=== PATIENT | male | born 1950 | race Caucasian/White ===

== ENCOUNTER 2017-06-02 19:38 | Inpatient (IN) | payer OTHER ==
[~2017-06-02] VITALS: Ht 175.3 cm; Wt 82.0 kg
--- NOTE | 2017-06-02 20:01 | EMERGENCY ROOM VISIT NOTE ---
History Report prepared by Pepeibpiero: Yael Chaparro Under the Supervision of: Dr. Michael Sarabia D.O. First contact with patient: 19:48 Chief Complaint: BACK PAIN Stated Complaint: BACK PAIN History of Present Illness The patient is a 66 year old male who presents to the Emergency Room with complaints of constant lower back pain beginning a month ago. He notes that a month ago he was bending over to pick something up when a sharp pain in his back started. He states that his pain is no longer sharp but it is now constant. The patient's pain worsens with movement. The patient had an MRI of his lower back on May 31 which was ordered by his PCP. He notes numbness and weakness in his legs beginning a week ago. The patient notes that a month ago he was walking normally but now he has to hold onto things to get around. Pt notes a cough but denies headache, change in vision, fevers, chest pain, shortness of breath, nausea, vomiting, diarrhea, pain with urination, and melena. Per [facility] ED report: The patient had an MRI spine then went to the ED at [facility]. His case discussed with between ER physician and with Dr. [facility] who recommended following up with edi specialist in week MRI Impression 05/31/17 1521: Acute central compression deformity of the L3 vertebral body with a bow tie configuration. The superior and inferior central endplates are depressed approximately 56 mm. retropulsion of the posterior L3 vertebral body with marked spinal canal stenosis and impingement of the cauda equina. No epidural abnormalities suggested. Mild edematous changes of the central endplates of L2-L3 and L3-L4. L3-L4 marked spinal canal stenosis. ilateral neural foraminal narrowing. L4-L5 marked spinal canal stenosis. Bilateral neural foraminal narrowing. Source of History: patient Onset: month ago Position: back (lower) Timing: constant Associated Symptoms: + cough, + weakness, + numbness, No fevers, No headache , No chest pain, No SOB, No nausea, No vomiting, No urinary symptoms Review of Systems See HPI for pertinent positives & negatives. A total of 10 systems reviewed and were otherwise negative. Past Medical & Surgical no active medical problems. Family History no pertinent family history stated. Social History Smoking Status: Former Smoker Marital Status: Current/Historical Medications Scheduled Allopurinol (Zyloprim), 150 MG PO DAILY Aspirin (Aspirin Ec), 81 MG PO DAILY Atorvastatin (Lipitor), 20 MG PO DAILY Baclofen (Lioresal), 10 MG PO TID/PRN Diclofenac (Voltaren), 75 MG PO BID Ferrous Sulfate (Iron), 325 MG PO DAILY Fish Oil ([place]-3), 1,400 MG PO DAILY Glipizide (Glipizide Er), 10 MG PO DAILY Hctz/Losartan (Hyzaar 25MG/100MG), 1 TAB PO DAILY Levothyroxine Sodium (Levothyroxine Sodium), 50 MCG PO DAILY Metformin Hcl (Glucophage), 1,000 MG PO BID Scheduled PRN Oxycodone/Acetaminophen 5MG/325MG (Percocet 5MG/325MG), 1 TABLET PO Q4H PRN for Pain Allergies Coded Allergies: No Known Allergies (Unverified , 06/02/17) Physical Exam Vital Signs Date Time Temp Pulse Resp B/P (MAP) Pulse Ox O2 Delivery O2 Flow Rate FiO2 06/03/17 00:16 65 16 164/84 92 Room Air 06/02/17 21:32 71 18 138/72 94 Room Air 06/02/17 19:42 36.9 83 20 137/89 94 Room Air Physical Exam GENERAL: sitting up in bed, alert, well appearing, well nourished, no distress, non-toxic EYE EXAM: normal conjunctiva OROPHARYNX: no exudate, no erythema, lips, buccal mucosa, and tongue normal and mucous membranes are moist NECK: supple, no nuchal rigidity, no adenopathy, non-tender LUNGS: Clear to auscultation. Normal chest wall mechanics HEART: no murmurs, S1 normal and S2 normal ABDOMEN: abdomen soft, non-tender, normo-active bowel sounds, no masses, no rebound or guarding. BACK: Back is symmetrical on inspection and there is no deformity, no midline tenderness, no CVA tenderness. SKIN: no rashes and no bruising UPPER EXTREMITIES: upper extremities are grossly normal. LOWER EXTREMITIES: flexion/extension of hip, knee, ankle intact, EHL 5/5 bilaterally but with slow movement. Patellar and Achilles 2/4 bilaterally. Pt is able to stand on heels and toes but ambulates with wide gait. Pt report diminishes sensation on anterior thighs. NEURO EXAM: Normal sensorium, cranial nerves II-XII grossly intact, normal speech, no gross weakness of arms. Medical Decision & Procedures ER Provider Diagnostic Interpretation: Radiology results as stated below per my review and the radiologist's interpretation: SINGLE VIEW CHEST FINDINGS: An AP, portable, upright chest radiograph is obtained. No prior studies are available for comparison at the time of dictation. The examination is degraded by portable technique and patient rotation. The heart is enlarged. The pulmonary vasculature is noncongested. Enlargement the central pulmonary arteries suggests pulmonary artery hypertension. There is diffuse interstitial thickening. There is masslike consolidation identified in the subpleural left midlung. Consolidative change is also seen at the left lung base. There is no large pleural effusion. The right lung is grossly clear. No pneumothorax is seen. The skeletal structures are osteopenic. The bony thorax is grossly intact. Degenerative changes noted throughout the thoracic spine. IMPRESSION: 1. There is masslike consolidation in the subpleural left midlung as well as consolidative change at the left lung base. Correlate clinically for evidence of pneumonia. Radiographic follow-up to resolution is recommended. If this fails to resolve then a chest CT should be considered to exclude underlying mass lesion. 2. Cardiomegaly. 3. The right lung appears clear. Electronically signed by: Jacky Solis M.D. Laboratory Results 06/02/17 20:21 Red Blood Count 3.94, Mean Corpuscular Volume 89.1, Mean Corpuscular Hemoglobin 30.2, Mean Corpuscular Hemoglobin Concent 33.9, Mean Platelet Volume 10.8, Neutrophils (%) (Auto) 75.4, Lymphocytes (%) (Auto) 11.2, Monocytes (%) (Auto) 9.5, Eosinophils (%) (Auto) 3.0, Basophils (%) (Auto) 0.3, Neutrophils # (Auto) 10.60, Lymphocytes # (Auto) 1.58, Monocytes # (Auto) 1.33, Eosinophils # (Auto) 0.42, Basophils # (Auto) 0.04 06/02/17 20:21 06/02/17 21:08 Test 06/02/17 20:21 06/02/17 21:08 White Blood Count 14.06 K/uL (4.8-10.8) Red Blood Count 3.94 M/uL (4.7-6.1) Hemoglobin 11.9 g/dL (14.0-18.0) Hematocrit 35.1 % (42-52) Mean Corpuscular Volume 89.1 fL (80-100) Mean Corpuscular Hemoglobin 30.2 pg (25-34) Mean Corpuscular Hemoglobin Concent 33.9 g/dl (32-36) Platelet Count 305 K/uL (130-400) Mean Platelet Volume 10.8 fL (7.4-10.4) Neutrophils (%) (Auto) 75.4 % Lymphocytes (%) (Auto) 11.2 % Monocytes (%) (Auto) 9.5 % Eosinophils (%) (Auto) 3.0 % Basophils (%) (Auto) 0.3 % Neutrophils # (Auto) 10.60 K/uL (1.4-6.5) Lymphocytes # (Auto) 1.58 K/uL (1.2-3.4) Monocytes # (Auto) 1.33 K/uL (0.11-0.59) Eosinophils # (Auto) 0.42 K/uL (0-0.5) Basophils # (Auto) 0.04 K/uL (0-0.2) RDW Standard Deviation 45.1 fL (36.4-46.3) RDW Coefficient of Variation 13.8 % (11.5-14.5) Immature Granulocyte % (Auto) 0.6 % Immature Granulocyte # (Auto) 0.09 K/uL (0.00-0.02) Anion Gap 8.0 mmol/L (3-11) Est Creatinine Clear Calc Drug Dose 55.2 ml/min Estimated GFR () 65.4 Estimated GFR (Non- 56.5 BUN/Creatinine Ratio 36.8 (10-20) Calcium Level 10.1 mg/dl (8.5-10.1) Total Bilirubin 0.7 mg/dl (0.2-1) Alanine Aminotransferase (ALT/SGPT) 62 U/L (12-78) Alkaline Phosphatase 152 U/L (45-117) Total Protein 8.0 gm/dl (6.4-8.2) Albumin 3.6 gm/dl (3.4-5.0) Direct Bilirubin 0.2 mg/dl (0-0.2) Aspartate Amino Transf (AST/SGOT) 45 U/L (15-37) Laboratory results per my review. Medications Administered Medications (Trade) Dose Ordered Sig/Ahmte Route Start Time Stop Time Status Last Admin Dose Admin Dexamethasone Sodium Phosphate (Decadron Inj) 10 mg NOW ONCE IV 06/02/17 20:45 06/02/17 20:46 DC 06/02/17 20:49 10 MG Ondansetron HCl (Zofran Inj) 4 mg NOW STAT IV 06/02/17 23:19 06/02/17 23:21 DC 06/03/17 00:14 4 MG Morphine Sulfate (MoRPHine SULFATE INJ) 2 mg STK-MED ONCE .ROUTE 06/03/17 00:06 06/03/17 00:07 DC 06/03/17 00:15 2 MG Morphine Sulfate (MoRPHine SULFATE INJ) 4 mg STK-MED ONCE .ROUTE 06/03/17 00:07 06/03/17 00:08 DC 06/03/17 00:14 4 MG ED Course ED COURSE: Vital signs were reviewed and showed hypertensive The patients medical record was reviewed The above diagnostic studies were performed and reviewed. ED treatments and interventions as stated above. 1950: The patient was evaluated in room A9B. A complete history and physical examination was performed. 2031: I discussed the spine findings with Dr. Bull-Orthopedics. He will see the patient for evaluation. 2044: Decadron 10 mg IV. 2318: Zofran Inj 4 mg IV, Morphine Sulfate 2 mg .ROUTE 2348: Upon reevaluation, the patient is resting. I discussed the findings and the treatment plan with the patient. He expresses agreement and understanding. [facility] The patient will be evaluated for further management. Based on the patients age, coexisting illnesses, exam and lab findings the decision to treat as an inpatient was made. The patient remained stable while under my care. The patient will be evaluated for further management. Medical Decision Differential diagnoses includes but is not limited to lumbar radiculopathy, muscle strain, facture, cauda equina, mass, and disc herniation. Patient is a 66-year-old male that presents to ER referred in by his primary care doctor. He had an MRI of his lower lumbar spine which showed spinal canal stenosis with impingement of the cauda equina. Patient had the MRI done at [facility] and was taken to the ER at that time. He was discharged to follow-up with neurosurgery but family never followed through. Patient was referred in by PCP today. MRI was reviewed. Discussed with Dr. Bull as he was web content specialist. Plan was to discharge patient and have him seen in the office tomorrow at 8:15 in the morning. Patient is still fairly neurologically intact. Patient did not feel as though he did go home and ambulated. Based on his MRI findings felt is prudent to admit him overnight and have him evaluated by surgery in the morning. He was given steroids per spine. Medication Reconcilliation Current Medication List: was personally reviewed by me Blood Pressure Screening Patient's blood pressure: Elevated blood pressure Blood pressure disposition: Elevated BP felt to be situational Consults Time Called: 2030 Consulting Physician: Dr. Bull-Orthopedics Returned Call: 2031 Discussed the patient's case. He will evaluate the patient for evaluation. Additional Consults: Time Called: 2344 Consulted Physician: Dr. Dawson Returned Call: [phone] Additional Comments: I reviewed the patient's case with Dr. Dawson. He will evaluate the patient for further management. Impression Primary Impression: Central stenosis of spinal canal Additional Impressions: Bilateral leg weakness Cauda equina compression Scribe Attestation The scribe's documentation has been prepared under my direction and personally reviewed by me in its entirety. I confirm that the note above accurately reflects all work, treatment, procedures, and medical decision making performed by me. Departure Information Dispostion Being Evaluated By Hospitalist Referrals Masoud Valentine D.O. (PCP) Patient Instructions My [facility] Problem Qualifiers
[2017-06-02 20:32] LABS: BASO % 0.3 %; BASO ABS # 0.04 K/uL (0-0.2); COMPLETE YES; HEMATOCRIT 35.1 % (42-52); IG% 0.6 %; LYMPH % 11.2 %; LYMPH ABS # 1.58 K/uL (1.2-3.4); MEAN CELL VOLUME 89.1 fL (80-100); MEAN CORPUSCULAR HEMOGLOBIN 30.2 pg (25-34); MEAN CORPUSCULAR HGB CONC 33.9 g/dl (32-36); MEAN PLATELET VOLUME 10.8 fL (7.4-10.4); MONO % 9.5 %; NEUT % 75.4 %; PLATELET COUNT 305 K/uL (130-400); RED BLOOD COUNT 3.94 M/uL (4.7-6.1); WHITE BLOOD COUNT 14.06 K/uL (4.8-10.8)
[2017-06-02] MEDS ORDERED: DEXAMETHASONE SOD INJ 10 MG/ML VIAL IV ONE (20:45)
[2017-06-02 20:59] LABS: ALKALINE PHOSPHATASE 152 U/L (45-117); ALT/SGPT 62 U/L (12-78); BLOOD UREA NITROGEN 48 mg/dl (7-18); BUN/CREATININE RATIO 36.8 (10-20); CALCIUM 10.1 mg/dl (8.5-10.1); CARBON DIOXIDE 27 mmol/L (21-32); CHLORIDE 102 mmol/L (98-107); GLUCOSE 128 mg/dl (70-99); SODIUM 137 mmol/L (136-145)
[2017-06-02] MEDS ORDERED: ALLO100T PO (21:15)
[2017-06-02] MEDS ORDERED: METF-384 PO (21:27)
[2017-06-02 21:28] LABS: POTASSIUM 4.5 mmol/L (3.5-5.1)
[2017-06-02] MEDS ORDERED: OMEG10007 PO (21:28)
[2017-06-02] MEDS ORDERED: ASPI81TA28 PO (21:30)
[2017-06-02] MEDS ORDERED: FERR1TAB23 PO (21:31)
[2017-06-02] MEDS ORDERED: HYZ/10015 PO (21:32)
[2017-06-02] MEDS ORDERED: LEVO50TA6 PO (21:34)
--- NOTE | 2017-06-02 21:34 | DIAGNOSTIC IMAGING REPORT ---
SINGLE VIEW CHEST CLINICAL HISTORY: Cough and back pain. FINDINGS: An AP, portable, upright chest radiograph is obtained. No prior studies are available for comparison at the time of dictation. The examination is degraded by portable technique and patient rotation. The heart is enlarged. The pulmonary vasculature is noncongested. Enlargement the central pulmonary arteries suggests pulmonary artery hypertension. There is diffuse interstitial thickening. There is masslike consolidation identified in the subpleural left midlung. Consolidative change is also seen at the left lung base. There is no large pleural effusion. The right lung is grossly clear. No pneumothorax is seen. The skeletal structures are osteopenic. The bony thorax is grossly intact. Degenerative changes noted throughout the thoracic spine. IMPRESSION: 1. There is masslike consolidation in the subpleural left midlung as well as consolidative change at the left lung base. Correlate clinically for evidence of pneumonia. Radiographic follow-up to resolution is recommended. If this fails to resolve then a chest CT should be considered to exclude underlying mass lesion. 2. Cardiomegaly. 3. The right lung appears clear. Electronically signed by: Jacky Solis M.D. 06/02/2017 9:32 PM Dictated Date/Time: 06/02/2017 9:30 PM
[2017-06-02] MEDS ORDERED: ATOR-22 PO (21:35)
[2017-06-02] MEDS ORDERED: GLIP-199 PO (21:36)
[2017-06-02] MEDS ORDERED: DICL-201 PO (21:38)
[2017-06-02] MEDS ORDERED: BACL10TA PO (21:39)
[2017-06-02] MEDS ORDERED: OXYC-57 PO (21:40)
[2017-06-02] MEDS ORDERED: ONDANSETRON INJ 2 MG/ML 2 ML VIAL IV STA (23:19)
[2017-06-02] MEDS ORDERED: MoRPHine SULFATE 10 MG/ML CARP/VIAL IV STA (23:19)
[2017-06-03] MEDS ORDERED: MoRPHine SULFATE 2 MG/ML CARP ONE (00:06)
[2017-06-03] MEDS ORDERED: MoRPHine SULFATE 4 MG/ML 1 ML CARP\\VIAL ONE (00:07)
[2017-06-03 00:42] LABS: MAGNESIUM 1.8 mg/dl (1.8-2.4); THYROID STIMULATING HORMONE 3.05 uIu/ml (0.300-4.500)
[2017-06-03] MEDS ORDERED: LIDODERM (LIDOCAINE) PATCH 5% TD ONE (01:50)
[2017-06-03] MEDS ORDERED: INSULIN ASPART 100 UNITS/ML 3 ML PEN SC ONE (01:50)
[2017-06-03] MEDS ORDERED: GLUCOSE 40% GEL 15 GM TUBE PO PRN ×2 (02:00)
[2017-06-03] MEDS ORDERED: LORAZEPAM 2 MG/ML 1 ML VIAL IV PRN ×2 (02:00)
[2017-06-03] MEDS ORDERED: DEXTROSE 50% 50 ML SYR IV PRN ×2 (02:00)
[2017-06-03] MEDS ORDERED: GLUCAGON FOR INJ 1 MG VIAL SQ PRN ×2 (02:00)
[2017-06-03] MEDS ORDERED: GLUCOSE 10 TABS/TUBE PO PRN ×2 (02:00)
[2017-06-03] MEDS ORDERED: BACLOFEN 10 MG TAB PO PRN (02:00)
[2017-06-03] MEDS ORDERED: ACETAMINOPHEN 325 MG TAB PO PRN (02:00)
[2017-06-03] MEDS ORDERED: ONDANSETRON INJ 2 MG/ML 2 ML VIAL IV PRN (02:00)
[2017-06-03] MEDS ORDERED: ALBUT/IPRATROP 3MG/0.5MG NEB 3 ML VIAL INH PRN (02:00)
[2017-06-03] MEDS ORDERED: KETOROLAC TROMETHAMINE 30 MG/ML VIAL IV PRN (02:00)
[2017-06-03] MEDS ORDERED: SODIUM CHLORIDE 0.9% 1000ML 1,000 ML IV SCH (02:00)
[2017-06-03 02:15] VITALS: BP 187/77; PULSE 77; TEMP 36.8; O2SAT 94; Ht 175.3 cm; Wt 82.0 kg
[2017-06-03] MEDS ORDERED: SODIUM CHLORIDE 0.9% 1000ML 1,000 ML IV ONE (02:15)
[2017-06-03] MEDS ORDERED: LEVAQUIN 750MG / 150ML D5W IV ONE (02:15)
[2017-06-03] MEDS ORDERED: INSULIN GLARGINE SOLOSTAR 100 UNITS/ML 3 ML PEN SC STA (02:39)
[2017-06-03] MEDS ORDERED: ALBUT/IPRATROP 3MG/0.5MG NEB 3 ML VIAL INH STA (02:40)
[2017-06-03] MEDS ORDERED: LEVOFLOXACIN 750MG / D5W IV STA (02:43)
[2017-06-03 02:50] VITALS: PULSE 72; O2SAT 92
[2017-06-03 03:00] VITALS: BP 157/75; PULSE 76
[2017-06-03] MEDS ORDERED: LORAZEPAM INJ 0.5 MG in SYRINGE 0.75 ML IV PRN (03:00)
[2017-06-03] MEDS: LEVOTHYROXINE 50 MCG TAB PO SCH (06:03)
[2017-06-03] MEDS: HYDROmorphone INJ 0.5 MG/0.5 ML SYR IV PRN ×2 (06:08→23:35)
[2017-06-03 06:19] LABS: ESTIMATED AVERAGE GLUCOSE 128 mg/dl; HA1C FLAG Normal (Normal)
[2017-06-03 06:20] LABS: BASO % 0.1 %; BASO ABS # 0.01 K/uL (0-0.2); COMPLETE YES; EOS % 0.1 %; HEMATOCRIT 36.8 % (42-52); IG% 0.6 %; LYMPH ABS # 0.77 K/uL (1.2-3.4); MEAN CELL VOLUME 89.1 fL (80-100); MEAN CORPUSCULAR HEMOGLOBIN 28.6 pg (25-34); MEAN CORPUSCULAR HGB CONC 32.1 g/dl (32-36); MONO % 2.6 %; NEUT % 89.6 %; PLATELET COUNT 343 K/uL (130-400); RED BLOOD COUNT 4.13 M/uL (4.7-6.1); WHITE BLOOD COUNT 10.93 K/uL (4.8-10.8)
[2017-06-03 06:49] LABS: BUN/CREATININE RATIO 36.1 (10-20); CALCIUM 9.4 mg/dl (8.5-10.1); CREATININE 1.5 mg/dl (0.60-1.40); POTASSIUM 4.8 mmol/L (3.5-5.1)
[2017-06-03 06:59] VITALS: BP 143/82; PULSE 71; TEMP 36.7; O2SAT 94
[2017-06-03] MEDS ORDERED: HydrALAZINE HCL 20 MG/ML VIAL IV. PRN (08:15)
[2017-06-03] MEDS: ALLOPURINOL 100 MG TAB PO SCH (08:57)
[2017-06-03] MEDS: FERROUS SULFATE 325 MG TAB PO SCH (08:58)
[2017-06-03] MEDS: ATORVASTATIN 20 MG TAB PO SCH (08:58)
[2017-06-03] MEDS: INSULIN ASPART 100 UNITS/ML 3 ML PEN SC SCH ×4 (08:59→21:29)
[2017-06-03] MEDS ORDERED: LOSARTAN POTASSIUM 50 MG TAB PO SCH (09:00)
--- NOTE | 2017-06-03 09:09 | HISTORY & PHYSICAL EXAMINATION ---
DATE OF ADMISSION: 06/03/2017 PRIMARY CARE PHYSICIAN: Dr. Brantley. CHIEF COMPLAINT: Back pain. HISTORY OF PRESENT ILLNESS: History is obtained from the patient and records. Medical history is significant for hypertension, hyperlipidemia, DM2 on oral meds, rheumatic fever as per records, CAD as per records, ongoing tobacco abuse, chronic anemia (baseline hemoglobin 13). About last month, the patient noted achy low back pain after bending down going down to his thighs. In the last 2 weeks, the pain had gone down to his both anterior thighs with some numbness, has trouble lifting legs. No chest pain, no shortness of breath, no fever, no chills. Occasional urinary dribbling noted. PX was seen at PCPs office a few days ago. Given steroids in the office and sent to [facility] Emergency Room. MRI showed acute central compression deformity at L3 vertebral body with bowtie configuration, superior, inferior, central endplates are depressed, approximately 5-6 mm retropulsion of posterior L3 vertebral body with marked spinal canal stenosis, impingement of the cauda equina. No epidural abnormality suggested, mild edematous changes of central endplate L2-L3, L3-L4, L3-L4 moderate spinal canal stenosis, L4-L5 marked spinal stenosis, bilateral neural foraminal narrowing. Px discharged home and instructed to request his family doctor for Orthopedics spine referral. Patient denies chest pain, shortness of breath. Admits to some junky cough more than usual. Denies aspiration. No known sick contacts Unable to cough as much because it worsens back pain. MEDICAL HISTORY: As above. Sees [facility]. A 2D Echo from May 2015 showed small apical, fixed defect, wall motion artifact , EF of 60%. SURGERIES: He has had cholecystectomy. HOME MEDICATIONS: Include, Zyloprim, aspirin, Lipitor, Voltaren, fish oil, glipizide, Hyzaar, levothyroxine, metformin, Percocet. ALLERGIES: No known drug allergies. FAMILY HISTORY: Heart disease, lung cancer. PERSONAL AND SOCIAL HISTORY: A few cigarettes a day. No chronic intake of alcoholic beverages. 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 PHYSICAL EXAMINATION: VITAL SIGNS: Blood pressure was noted to be 138/72, pulse rate 81, RR 18, temperature 36.8, sats 100 on room air. GENERAL: Noted to be slightly uncomfortable. No respiratory distress. SKIN: Pallor. HEENT: Pale palpebral conjunctivae. Dry mucosa. NECK: No JVD. Supple. CHEST: Expiratory wheezes. HEART: Regular rate and rhythm. ABDOMEN: Soft. BACK: Tenderness low back, joey SLR positive EXTREMITIES: No edema, no tenderness. NE no gross focality except for back exam LABORATORY DATA: Hemoglobin was 11.9, hematocrit 35.1, white cell count 14, platelets 305. Sodium 130, potassium 4.5, chloride 102, CO2 27, BUN 40, creatinine 1.3, glucose 128, alk phos 152. IMAGING DATA: Chest x-ray showed mass-like consolidation, subpleural left mid lung, consolidation left lung base, pneumonia. Consider CT of chest. cardiomegaly. ASSESSMENT: 1. Worsening back pain secondary to cauda equina compression. 2. Community acquired pneumonia, no sepsis 3. abnormal CT chest, possible mass. 4. Hypertension, stable. 5. Coronary artery disease as per records (Fixed defect on past cardiac imaging) 6. DM2, on oral medications, well-controlled as of recent HgA1c. 7. Acute on chronic anemia, hemoglobin drop from baseline of 13 8. Ongoing tobacco abuse. PLAN: GMF analgesia, Lidoderm patch trial. Orthopedics consult. RE cauda equina compression (ER provider already in touch with Dr. Bull.) Further management of back pain [facility]. May need CT chest regarding abnormal chest x-ray. Anemia workup. ISS BG goal 140-180. Patient counseled to stop smoking. DVT prophylaxis, SCDs. RE anemia, potential spine surgery Full code. MTDD
[2017-06-03 12:46] LABS: HEMATOCRIT 34.8 % (42-52)
[2017-06-03 13:12] LABS: FERRITIN 366.7 ng/ml (8.0-388.0)
[2017-06-03 15:10] VITALS: BP 146/77; PULSE 68; TEMP 36.8; O2SAT 92
--- NOTE | 2017-06-03 21:16 | Progress Note ---
Medicine Progress Note Date & Time of Visit: Jun 03, 2017 at 11:59. Subjective Pt was seen and examined Lying in bed with no distress Pt said that pain slightly improved due to the pain med Pt said that he is still having numbness in the anterior area of his thighs Denies any bladder and bowel loss Denies any chest pain, palpitation, dizziness and sob Objective Last 8 Hrs Date Time Temp Pulse Resp B/P (MAP) Pulse Ox O2 Delivery O2 Flow Rate FiO2 06/03/17 16:15 Room Air 06/03/17 15:10 36.8 68 17 146/77 (100) 92 Room Air Physical Exam: General- No acute distress Head- atraumatic Eyes- PERRL, EOMI ENT- oropharynx clear Neck- supple, no JVD Lungs- clear to auscultation Heart- regular rhythm Abdomen- normal bowel sounds, soft Extremities- no calf tenderness Neuro- alert, oriented x 3; PERRL, EOMI Skin- warm & dry Laboratory Results: Last 24 Hours Test 06/02/17 21:08 06/03/17 03:02 06/03/17 05:22 06/03/17 07:51 Potassium Level 4.5 mmol/L 4.8 mmol/L Magnesium Level 1.8 mg/dl Direct Bilirubin 0.2 mg/dl 0.2 mg/dl Aspartate Amino Transf (AST/SGOT) 45 U/L 42 U/L Thyroid Stimulating Hormone (TSH) 3.050 uIu/ml Bedside Glucose 252 mg/dl 146 mg/dl White Blood Count 10.93 K/uL Red Blood Count 4.13 M/uL Hemoglobin 11.8 g/dL Hematocrit 36.8 % Mean Corpuscular Volume 89.1 fL Mean Corpuscular Hemoglobin 28.6 pg Mean Corpuscular Hemoglobin Concent 32.1 g/dl Platelet Count 343 K/uL Mean Platelet Volume 11.0 fL Neutrophils (%) (Auto) 89.6 % Lymphocytes (%) (Auto) 7.0 % Monocytes (%) (Auto) 2.6 % Eosinophils (%) (Auto) 0.1 % Basophils (%) (Auto) 0.1 % Neutrophils # (Auto) 9.79 K/uL Lymphocytes # (Auto) 0.77 K/uL Monocytes # (Auto) 0.28 K/uL Eosinophils # (Auto) 0.01 K/uL Basophils # (Auto) 0.01 K/uL RDW Standard Deviation 44.4 fL RDW Coefficient of Variation 13.7 % Immature Granulocyte % (Auto) 0.6 % Immature Granulocyte # (Auto) 0.07 K/uL Sodium Level 136 mmol/L Chloride Level 102 mmol/L Carbon Dioxide Level 27 mmol/L Anion Gap 7.0 mmol/L Blood Urea Nitrogen 54 mg/dl Creatinine 1.50 mg/dl Est Creatinine Clear Calc Drug Dose 47.8 ml/min Estimated GFR () 55.0 Estimated GFR (Non- 47.5 BUN/Creatinine Ratio 36.1 Random Glucose 214 mg/dl Calcium Level 9.4 mg/dl Total Bilirubin 0.6 mg/dl Alanine Aminotransferase (ALT/SGPT) 70 U/L Alkaline Phosphatase 156 U/L Total Protein 7.6 gm/dl Albumin 3.3 gm/dl Hepatitis C Antibody Screen NEG Test 06/03/17 12:11 06/03/17 12:14 06/03/17 17:06 Bedside Glucose 118 mg/dl 123 mg/dl Hemoglobin 12.1 g/dL Hematocrit 34.8 % Absolute Reticulocyte Count 0.04 10^6/uL Percent Reticulocyte Count 1.0 % Iron Level 119 mcg/dl Total Iron Binding Capacity 310 mcg/dl Transferrin 237 mg/dl Transferrin % Saturation 36 % Ferritin 366.7 ng/ml Vitamin B12 Level 403 pg/mL Folate 14.49 ng/mL Assessment & Plan Back pain MRI showed MRI showed acute central compression deformity at L3 vertebral body and impingement of the cauda equina. Continue pain control Ortho consulted Possible pneumonia CXR showed masslike consolidation in the subpleural left midlung as well as consolidative change at the left lung base Complaint of cough Afebrile, WBC elevated Started on levaquin will get a CT of the chest to evaluate the mass like consolidation Hx of smoking Hypertension Losartan on hold due to elevate creatine stable. Elevated creatine received IVF Losartan and HCTZ on hold monitor BMP Coronary artery disease Denies any chest pain stable DM2 Hba1c 6.1 (06/03/17) Controlled Oral med on hold continue insulin coverage Acute on chronic anemia Stable DVT px on SCDs (for possible surgery) CODE STATUS FULL CODE Consultants: Ortho Current Inpatient Medications: Current Inpatient Medications Medications (Trade) Dose Ordered Sig/Ahmet Route Start Time Stop Time Status Last Admin Dose Admin Acetaminophen (Tylenol Tab) 650 mg Q4H PRN PO 06/03/17 02:00 07/03/17 01:59 Insulin Aspart (novoLOG ASPART) SLIDING SCALE If C... ACHS SC 06/03/17 07:00 07/03/17 06:59 Glucose (Glucose 40% Gel) 15-30 GRAMS 15 GRAMS... UD PRN PO 06/03/17 02:00 07/03/17 01:59 Glucose (Glucose Chew Tab) 4-8 Tablets 4 Tabl... UD PRN PO 06/03/17 02:00 07/03/17 01:59 Dextrose (Dextrose 50% 50ML Syringe) 25-50ML OF 50% DW IV FOR... UD PRN IV 06/03/17 02:00 07/03/17 01:59 Glucagon (Glucagon Inj) 1 mg UD PRN SQ 06/03/17 02:00 07/03/17 01:59 Allopurinol (Zyloprim Tab) 150 mg DAILY PO 06/03/17 09:00 07/03/17 08:59 06/03/17 08:57 150 MG Atorvastatin Calcium (Lipitor Tab) 20 mg DAILY PO 06/03/17 09:00 07/03/17 08:59 06/03/17 08:58 20 MG Baclofen (Lioresal Tab) 10 mg TID PRN PO 06/03/17 02:00 07/03/17 01:59 Levothyroxine Sodium (Synthroid Tab) 50 mcg DAILYBB PO 06/03/17 06:00 07/03/17 05:59 06/03/17 06:03 50 MCG Oxycodone/ Acetaminophen (Percocet 5-325mg Tab) pain not relieved by ot... Q4H PRN PO 06/03/17 02:00 06/17/17 01:59 Ferrous Sulfate (Feosol Tab) 325 mg DAILY PO 06/03/17 09:00 07/03/17 08:59 06/03/17 08:58 325 MG Hydromorphone HCl (Dilaudid Inj) 0.5 mg Q3H PRN IV 06/03/17 02:00 06/17/17 01:59 06/03/17 06:08 0.5 MG Ondansetron HCl (Zofran Inj) 4 mg Q6H PRN IV 06/03/17 02:00 07/03/17 01:59 Lidocaine (Lidoderm Patch 5%) 1 patch QAM TD 06/04/17 09:00 07/04/17 08:59 Miscellaneous (Remove Lidoderm Patch) 1 ea DAILY@21 N/A 06/03/17 21:00 07/03/17 20:59 Ketorolac Tromethamine (Toradol Inj) 15 mg Q6H PRN IV 06/03/17 02:00 06/08/17 01:59 Losartan Potassium (coZAAR TAB) 100 mg QAM PO 06/03/17 09:00 07/03/17 08:59 Future Hold Albuterol/ Ipratropium (Duoneb) 3 ml Q2H PRN INH 06/03/17 02:00 07/03/17 01:59 Sodium Chloride 1,000 ml @ 60 mls/hr [id number] ONCE IV 06/03/17 02:15 07/03/17 01:59 06/03/17 02:55 60 MLS/HR Levofloxacin (Consult) 1 ea DAILY PRN N/A 06/04/17 09:00 07/04/17 08:59 Lorazepam 0.5 mg/ Syringe 1 ml @ 1 mls/min Q4H PRN IV 06/03/17 03:00 07/03/17 02:59 Levofloxacin (Levaquin Tab) 750 mg DAILY@0400 PO 06/04/17 04:00 06/09/17 04:01 Hydralazine HCl (HydrALAZINE INJ) 5 mg Q6 PRN IV. 06/03/17 08:15 07/03/17 08:14
[2017-06-03] MEDS ORDERED: GUAIFENESIN 200 MG TAB PO PRN (21:30)
--- NOTE | 2017-06-03 21:51 | DIAGNOSTIC IMAGING REPORT ---
(CHEST) THORAX WITHOUT CT DOSE: 408.71 mGy.cm HISTORY: Abnormal chest x-ray Mass like consolidation on x-ray TECHNIQUE: Multiaxial CT images of the chest were performed without contrast. A dose lowering technique was utilized adhering to the principles of ALARA. COMPARISON: Chest series and 8 FINDINGS: Emphysematous and interstitial change throughout both hemithoraces. Pleural-based spiculated mass process peripheral left midlung measuring 3.5 x 2.6 cm. Additional poorly defined Nodule superior segment left lower lobe measuring 1.6 cm. Somewhat reticular nodular-type pattern to the left upper lobe in the left suprahilar region. Additional nodularity may be present. Somewhat bulky mediastinal and hilar regions extremely difficult to evaluate due to the absence of intravenous contrast enhancement. Significant adenopathy may be present. IMPRESSION: 1. Emphysematous and interstitial change throughout both hemithoraces. 2. Pleural-based spiculated mass left midlung laterally measuring 3.5 x 2.6 cm. 3. Additional pleural-based nodule measuring 1.6 cm superior segment left lower lobe. 4. Left perihilar fibrotic and/or reticular nodular change 6. Poor definition of the normal structures of the hilar and mediastinal regions raising the possibility of significant adenopathy. 7. A neoplastic process is the diagnosis of exclusion The above report was generated using voice recognition software. It may contain grammatical, syntax or spelling errors. Electronically signed by: Randolph Robins M.D. 06/03/2017 9:50 PM Dictated Date/Time: 06/03/2017 9:44 PM
[2017-06-03 22:57] VITALS: BP 168/77; PULSE 66; TEMP 36.7; O2SAT 90
[2017-06-04] VITALS (9 sets, daily range): BP systolic 156–186; BP diastolic 64–91; PULSE 67–75; TEMP 36.8–37; O2SAT 93–95
[2017-06-04] MEDS ORDERED: LEVOFLOXACIN 750 MG TAB PO SCH (04:00)
[2017-06-04] MEDS: LEVOTHYROXINE 50 MCG TAB PO SCH (05:48)
[2017-06-04 06:28] LABS: BASO % 0.2 %; BASO ABS # 0.02 K/uL (0-0.2); COMPLETE YES; EOS % 1.9 %; HEMATOCRIT 35.4 % (42-52); IG% 0.6 %; LYMPH % 10.8 %; LYMPH ABS # 1.31 K/uL (1.2-3.4); MEAN CELL VOLUME 87.4 fL (80-100); MEAN CORPUSCULAR HEMOGLOBIN 28.9 pg (25-34); MEAN CORPUSCULAR HGB CONC 33.1 g/dl (32-36); MEAN PLATELET VOLUME 10.7 fL (7.4-10.4); MONO % 8.9 %; NEUT % 77.6 %; PLATELET COUNT 324 K/uL (130-400); RED BLOOD COUNT 4.05 M/uL (4.7-6.1); WHITE BLOOD COUNT 12.17 K/uL (4.8-10.8)
[2017-06-04 07:03] LABS: BUN/CREATININE RATIO 34.3 (10-20); CALCIUM 9.4 mg/dl (8.5-10.1); CREATININE 1.1 mg/dl (0.60-1.40); POTASSIUM 4.2 mmol/L (3.5-5.1)
[2017-06-04] MEDS: OXYCODONE/ACETAMINOPHEN 5-325 TAB PO PRN ×2 (07:25→16:04)
[2017-06-04] MEDS: ALLOPURINOL 100 MG TAB PO SCH (08:34)
[2017-06-04] MEDS: ATORVASTATIN 20 MG TAB PO SCH (08:34)
[2017-06-04] MEDS: FERROUS SULFATE 325 MG TAB PO SCH (08:35)
[2017-06-04] MEDS: LIDODERM (LIDOCAINE) PATCH 5% TD SCH (08:36)
[2017-06-04] MEDS: INSULIN ASPART 100 UNITS/ML 3 ML PEN SC SCH ×4 (08:37→21:48)
[2017-06-04] MEDS ORDERED: LEVOFLOXACIN CONSULT ACTIVE PRN (09:00)
--- NOTE | 2017-06-04 09:49 | DIAGNOSTIC IMAGING REPORT ---
LUMBAR SPINE 2 OR 3 VIEWS CLINICAL HISTORY: 66 years-old Male presenting with low back pain. TECHNIQUE: Frontal, lateral, and coned in lateral views of the lumbar spine were obtained. COMPARISON: None. FINDINGS: Fracture of the L3 vertebral body with an obliquely oriented corner fracture fragment consisting of the majority of the anterior aspect of L3 and significant resulting deformity of the superior endplate. There is slight anterior displacement and rotation of the fracture fragment. No significant retropulsion of fracture fragments are radiographically evident. Overall straightening of normal lumbar lordosis results. Mild degenerative change evident. Cholecystectomy clips. Atherosclerosis. Moderate stool burden in the left colon. No gross pneumoperitoneum. IMPRESSION: 1. Findings consistent with L3 vertebral body fracture with depression of the superior endplate and slight anterior displacement of the large corner fracture fragment. This would be better assessed with CT. Electronically signed by: Nando Pruitt M.D. 06/04/2017 9:47 AM Dictated Date/Time: 06/04/2017 9:44 AM
[2017-06-04 10:30] LABS: PROTHROMBIN TIME (PATIENT) 11.2 SECONDS (9.0-12.0)
[2017-06-04] MEDS: HYDROmorphone INJ 0.5 MG/0.5 ML SYR IV PRN ×2 (10:56→17:29)
[2017-06-04] MEDS ORDERED: SODIUM CHLOR 0.45% + 20MEQ KCL 1,000 ML IV SCH (12:45)
--- NOTE | 2017-06-04 14:31 | HISTORY & PHYSICAL EXAMINATION ---
DATE OF ADMISSION: 06/03/2017 HISTORY PHYSICAL AND CONSULTATION CHIEF COMPLAINT: Back pain and lower extremity difficulty. HISTORY OF PRESENT ILLNESS: Mike is a pleasant gentleman, 66 years of age. I met, interviewed and examined him in the morning of 04 of June at approximately 07:30 a.m. He has back and lower extremity difficulties several weeks in duration, worsening over time. He presented to outlying facility a few days ago, images were obtained, went home with medication, and back into [facility] for his ongoing back pain associated weakness. I was asked to see the patient yesterday, the . ____ him to the office. Evidently, he stayed appropriately and is in need of medical attention. PAST MEDICAL HISTORY: Hypertension, diabetes mellitus, rheumatic fever, coronary heart disease, tobacco use, and chronic anemia. PAST SURGICAL HISTORY: Negative. SOCIAL HISTORY: He is a cigarette smoker and mild ETOH user. No illicit drug use. FAMILY HISTORY: Heart disease and lung cancer. ALLERGIES: None known. HOME MEDICATIONS: Include Zyloprim, aspirin, Lipitor, Voltaren, glipizide, Hyzaar, levothyroxine, metformin, and Percocet. REVIEW OF SYSTEMS: He denies blurred vision, double vision, tinnitus, or vertigo. He denies neck pain. He admits to coughing and acquired pneumonia. Denies chest pain or palpitations. No angina. No arrhythmias. Denies any nausea, vomiting, urgency, frequency, or dysuria. He does admit to frequency. He describes his urinary frequency where he has to urinate approximately every hour. So, no true incontinence, but certainly a change. Constitutionally, denies fever, sweats or chills. Lower extremity weakness from the knee proximal. OBJECTIVE: GENERAL: He is alert and oriented gentleman. He is in distress. He is 5 feet 9 inches and 170 pounds. VITAL SIGNS: Blood pressure 130/80 and pulse of 80 regular. CARDIAC: Normal S1 and S2. No S3. LUNGS: Clear to auscultation. No rales or rhonchi. He ____ wheezing. He is somewhat productive. ABDOMEN: Soft and nontender. There are no masses, no organomegaly, and no pain with percussion. SKIN AND INTEGUMENTARY: Intact. VASCULAR STRUCTURES: Intact. NEUROLOGIC: He is weak with quadriceps strength bilaterally. I grade his quadriceps strength 3/4 of the left and of the right. Slight weakness of dorsiflexion. Muscle atrophy as well. No signs of upper motor neuron issues, specifically no clonus or hyperreflexia. IMAGES: Reviewed demonstrate a burst fracture of the L3 vertebrae. Labs reviewed as well demonstrate anemia. ASSESSMENT: Pleasant young gentleman, 66 years of age. Primary problem is his burst fracture. Also, he has anemia associated weakness, concerned over urinary frequency. He also has some chronic obstructive pulmonary disease and some coronary heart disease. DISPOSITION: At this point in time, this is a surgical urgency. He needs stabilization of the spine. He has pressure on the cauda equina. This could progress to a full fledged cauda equina syndrome and I have seen this in clinical experience. We will address surgery tomorrow, the , decompressed the neural elements, stabilize his spine with a dung screw construct. We need to have him medically cleared and lungs cleared. He will need attention postoperatively. I have explained to the patient and he is well aware there is possibly some more serious problem as well. We will keep him n.p.o. after midnight.
--- NOTE | 2017-06-04 15:02 | Anesthesiology Progress Note ---
Pre-OP Anesthesia Assessment Date of Note Jun 04, 2017. Review patient information reviewed, chart reviewed, labs reviewed, acceptable for surgery Notes The patient has a resolving pneumonia but his room air 02 sat is 95. I feel he is an acceptable candidate for surgery especially due to his cauda equina compression.
--- NOTE | 2017-06-04 16:51 | Progress Note ---
Medicine Progress Note Date & Time of Visit: Jun 04, 2017 at 16:25. Subjective Pt was seen and examined Lying in bed with no distress Pt said that continue to have pain in his bad denies any chest pain, palpitation, dizziness and SOB Objective Last 8 Hrs Date Time Temp Pulse Resp B/P (MAP) Pulse Ox O2 Delivery O2 Flow Rate FiO2 06/04/17 15:12 36.8 74 18 171/81 (111) 93 Room Air 06/04/17 14:45 176/81 (112) 06/04/17 10:53 75 185/90 (121) Physical Exam: General- No acute distress Head- atraumatic Eyes- PERRL, EOMI ENT- oropharynx clear Neck- supple, no JVD Lungs- clear to auscultation Heart- regular rhythm Abdomen- normal bowel sounds, soft Extremities- no calf tenderness Neuro- alert, oriented x 3; PERRL, EOMI Skin- warm & dry Laboratory Results: Last 24 Hours Test 06/03/17 17:06 06/03/17 20:56 06/04/17 05:52 06/04/17 08:16 Bedside Glucose 123 mg/dl 195 mg/dl 155 mg/dl White Blood Count 12.17 K/uL Red Blood Count 4.05 M/uL Hemoglobin 11.7 g/dL Hematocrit 35.4 % Mean Corpuscular Volume 87.4 fL Mean Corpuscular Hemoglobin 28.9 pg Mean Corpuscular Hemoglobin Concent 33.1 g/dl Platelet Count 324 K/uL Mean Platelet Volume 10.7 fL Neutrophils (%) (Auto) 77.6 % Lymphocytes (%) (Auto) 10.8 % Monocytes (%) (Auto) 8.9 % Eosinophils (%) (Auto) 1.9 % Basophils (%) (Auto) 0.2 % Neutrophils # (Auto) 9.46 K/uL Lymphocytes # (Auto) 1.31 K/uL Monocytes # (Auto) 1.08 K/uL Eosinophils # (Auto) 0.23 K/uL Basophils # (Auto) 0.02 K/uL RDW Standard Deviation 43.7 fL RDW Coefficient of Variation 13.6 % Immature Granulocyte % (Auto) 0.6 % Immature Granulocyte # (Auto) 0.07 K/uL Sodium Level 137 mmol/L Potassium Level 4.2 mmol/L Chloride Level 103 mmol/L Carbon Dioxide Level 27 mmol/L Anion Gap 7.0 mmol/L Blood Urea Nitrogen 38 mg/dl Creatinine 1.10 mg/dl Est Creatinine Clear Calc Drug Dose 65.2 ml/min Estimated GFR () 80.1 Estimated GFR (Non- 69.1 BUN/Creatinine Ratio 34.3 Random Glucose 144 mg/dl Calcium Level 9.4 mg/dl Test 06/04/17 09:58 Prothrombin Time 11.2 SECONDS Prothromb Time International Ratio 1.0 Assessment & Plan Back pain MRI showed MRI showed acute central compression deformity at L3 vertebral body and impingement of the cauda equina. Lumbar xray showed Findings consistent with L3 vertebral body fracture with depression of the superior endplate and slight anterior displacement of the large corner fracture fragment. Continue pain control Ortho consulted plan for surgery tomorrow Pt said that he was very active before the back pain He said that he has a stair with 17steps in his house and never has any chest discomfort or SOB to climb it He was able to walk more than 1 block before his back pain with no distress He had a functional capacity greater than 4 before his back pain Denies any chest pain, palpitation, dizziness and SOB Last pharmacologic nuclear stress test in 05/2015 was negative for ischemia EKG showed no ischemic changes has cardiac risk factors Pt understands the risk of the procedure such as GA, infection, bleeding, and even Agreed to proceed with procedure Stable to proceed with the surgery Possible pneumonia CXR showed masslike consolidation in the subpleural left midlung as well as consolidative change at the left lung base Complaint of cough Afebrile, WBC elevated On day [address] of chest done showed Pleural-based spiculated mass left midlung laterally measuring 3.5 x 2.6 cm; pleural-based nodule measuring 1.6 cm superior segment left lower lobe. No sign of pneumonia Will consider to d/c abx Lung Mass CT mass showed spiculated mass left midlung laterally measuring 3.5 x 2.6 cm case discussed with Pulmonary team that recommend CT guided bx case discuss with Radiology, plan to do CT guided bx Will need follow up with pulmonology Hypertension Losartan on hold due to elevate creatine stable. Elevated creatine received IVF Losartan and HCTZ on hold monitor BMP Coronary artery disease Denies any chest pain stable DM2 Hba1c 6.1 (06/03/17) Controlled Oral med on hold continue insulin coverage Acute on chronic anemia Stable DVT px on SCDs (for possible surgery) CODE STATUS FULL CODE Disposition Plan for surgery tomorrow Consultants: Ortho Current Inpatient Medications: Current Inpatient Medications Medications (Trade) Dose Ordered Sig/Ahmet Route Start Time Stop Time Status Last Admin Dose Admin Acetaminophen (Tylenol Tab) 650 mg Q4H PRN PO 06/03/17 02:00 07/03/17 01:59 Insulin Aspart (novoLOG ASPART) SLIDING SCALE If C... ACHS SC 06/03/17 07:00 07/03/17 06:59 06/03/17 21:29 1 UNITS Glucose (Glucose 40% Gel) 15-30 GRAMS 15 GRAMS... UD PRN PO 06/03/17 02:00 07/03/17 01:59 Glucose (Glucose Chew Tab) 4-8 Tablets 4 Tabl... UD PRN PO 06/03/17 02:00 07/03/17 01:59 Dextrose (Dextrose 50% 50ML Syringe) 25-50ML OF 50% DW IV FOR... UD PRN IV 06/03/17 02:00 07/03/17 01:59 Glucagon (Glucagon Inj) 1 mg UD PRN SQ 06/03/17 02:00 07/03/17 01:59 Allopurinol (Zyloprim Tab) 150 mg DAILY PO 06/03/17 09:00 07/03/17 08:59 06/04/17 08:34 150 MG Atorvastatin Calcium (Lipitor Tab) 20 mg DAILY PO 06/03/17 09:00 07/03/17 08:59 06/04/17 08:34 20 MG Baclofen (Lioresal Tab) 10 mg TID PRN PO 06/03/17 02:00 07/03/17 01:59 Levothyroxine Sodium (Synthroid Tab) 50 mcg DAILYBB PO 06/03/17 06:00 07/03/17 05:59 06/04/17 05:48 50 MCG Oxycodone/ Acetaminophen (Percocet 5-325mg Tab) pain not relieved by ot... Q4H PRN PO 06/03/17 02:00 06/17/17 01:59 06/04/17 16:04 2 TAB Ferrous Sulfate (Feosol Tab) 325 mg DAILY PO 06/03/17 09:00 07/03/17 08:59 06/04/17 08:35 325 MG Hydromorphone HCl (Dilaudid Inj) 0.5 mg Q3H PRN IV 06/03/17 02:00 06/17/17 01:59 06/04/17 10:56 0.5 MG Ondansetron HCl (Zofran Inj) 4 mg Q6H PRN IV 06/03/17 02:00 07/03/17 01:59 Lidocaine (Lidoderm Patch 5%) 1 patch QAM TD 06/04/17 09:00 07/04/17 08:59 06/04/17 08:36 1 PATCH Miscellaneous (Remove Lidoderm Patch) 1 ea DAILY@21 N/A 06/03/17 21:00 07/03/17 20:59 06/03/17 21:24 1 EA Ketorolac Tromethamine (Toradol Inj) 15 mg Q6H PRN IV 06/03/17 02:00 06/08/17 01:59 Losartan Potassium (coZAAR TAB) 100 mg QAM PO 06/03/17 09:00 07/03/17 08:59 Future hold 06/04/17 10:55 100 MG Albuterol/ Ipratropium (Duoneb) 3 ml Q2H PRN INH 06/03/17 02:00 07/03/17 01:59 Levofloxacin (Consult) 1 ea DAILY PRN N/A 06/04/17 09:00 07/04/17 08:59 Lorazepam 0.5 mg/ Syringe 1 ml @ 1 mls/min Q4H PRN IV 06/03/17 03:00 07/03/17 02:59 Hydralazine HCl (HydrALAZINE INJ) 5 mg Q6 PRN IV. 06/03/17 08:15 07/03/17 08:14 06/04/17 14:49 5 MG Guaifenesin (Organidin Nr Tab) 200 mg Q8 PRN PO 06/03/17 21:30 07/03/17 21:29 Potassium Chloride/Sodium Chloride 1,000 ml @ 50 mls/hr Q20H IV 06/04/17 12:45 07/04/17 12:29 06/04/17 13:00 50 MLS/HR Levofloxacin (Levaquin Tab) 750 mg Q24H PO 06/05/17 08:00 06/09/17 08:01
[2017-06-05] VITALS (10 sets, daily range): BP systolic 137–166; BP diastolic 67–84; PULSE 69–95; TEMP 36.6–36.9; O2SAT 91–97
[2017-06-05] MEDS: OXYCODONE/ACETAMINOPHEN 5-325 TAB PO PRN (01:41)
[2017-06-05] MEDS: LEVOTHYROXINE 50 MCG TAB PO SCH (06:00)
--- NOTE | 2017-06-05 07:35 | HISTORY & PHYSICAL EXAMINATION ---
DATE OF ADMISSION: 06/03/2017 ADDENDUM IMPRESSION: Includes a L3 burst fracture with cauda equina compression, nerve root compromise, profound neurological deficits and instability. PLAN: Includes a fusion lumbar spine, decompression of nerve roots, release of the cauda equina compression and hopefully tenriism with normal lordosis. The fusion will be from lumbar 1, 2, 4 and 5 with a screw udng construct. This was explained to the patient last evening.
[2017-06-05] MEDS: INSULIN ASPART 100 UNITS/ML 3 ML PEN SC SCH ×4 (08:00→21:30)
[2017-06-05 08:10] LABS: BASO % 0.1 %; BASO ABS # 0.01 K/uL (0-0.2); COMPLETE YES; EOS % 2.3 %; HEMATOCRIT 35.5 % (42-52); IG% 0.8 %; LYMPH ABS # 1.43 K/uL (1.2-3.4); MEAN CELL VOLUME 86.4 fL (80-100); MEAN CORPUSCULAR HEMOGLOBIN 29.2 pg (25-34); MEAN CORPUSCULAR HGB CONC 33.8 g/dl (32-36); MEAN PLATELET VOLUME 10.9 fL (7.4-10.4); MONO % 9.4 %; NEUT % 75.4 %; PLATELET COUNT 316 K/uL (130-400); RED BLOOD COUNT 4.11 M/uL (4.7-6.1); WHITE BLOOD COUNT 11.96 K/uL (4.8-10.8)
[2017-06-05 08:40] LABS: BUN/CREATININE RATIO 28.5 (10-20); CALCIUM 9.7 mg/dl (8.5-10.1); CREATININE 0.94 mg/dl (0.60-1.40); POTASSIUM 4.1 mmol/L (3.5-5.1)
[2017-06-05] MEDS ORDERED: FENTANYL CITRATE INJ 50 MCG/1 ML 2 ML VIAL ONE (08:41)
[2017-06-05] MEDS ORDERED: ROCURONIUM BROMIDE 10 MG/ML 5 ML VIAL IV ONE (08:41)
[2017-06-05] MEDS ORDERED: LIDOCAINE HCL 2% 2 ML VIAL (20MG/ML) ONE (08:41)
[2017-06-05] MEDS ORDERED: ONDANSETRON INJ 2 MG/ML 2 ML VIAL ONE (08:41)
[2017-06-05] MEDS ORDERED: NEOSTIGMINE METHYLSULFATE 5 MG/5 ML SYR ONE (08:41)
[2017-06-05] MEDS ORDERED: PROPOFOL IV EMULSION 10 MG/ML 20 ML VIAL IV ONE (08:41)
[2017-06-05] MEDS ORDERED: GLYCOPYRROLATE INJ 0.2 MG/ML VIAL ONE (08:41)
[2017-06-05] MEDS ORDERED: DEXAMETHASONE SOD INJ 4 MG/ML VIAL ONE (08:41)
[2017-06-05] MEDS ORDERED: MIDAZOLAM HCL 1 MG/ML 2ML VIAL ONE (08:41)
[2017-06-05] MEDS ORDERED: ATROPINE SULFATE 0.1 MG/ML 5ML SYR IV PRN (09:00)
[2017-06-05] MEDS ORDERED: HYDROmorphone INJ 2 MG/ML SYR/VIAL IV PRN (09:00)
[2017-06-05] MEDS ORDERED: ONDANSETRON INJ 2 MG/ML 2 ML VIAL IV PRN ×2 (09:00→12:45)
[2017-06-05] MEDS ORDERED: EpHEDrine SULFATE INJ 50 MG/ML AMP IV PRN (09:00)
[2017-06-05] MEDS: LIDODERM (LIDOCAINE) PATCH 5% TD SCH (09:00)
[2017-06-05] MEDS ORDERED: PHENYLEPHRINE 100MCG/ML 5ML SYR IV PRN (09:00)
[2017-06-05] MEDS ORDERED: HYDROmorphone INJ 2 MG/ML SYR/VIAL ONE (09:17)
[2017-06-05] MEDS ORDERED: CEFAZOLIN IV 2,000 MG/60 ML D5W IV ONE (09:28)
--- NOTE | 2017-06-05 09:28 | History & Physical Bridge Note ---
H&P Re-Evaluation Bridge Note: I have examined the patient, reviewed the History & Physical and in the interval since the performance of the History & Physical I have noted the following changes of clinical significance: No changes noted
[2017-06-05] MEDS ORDERED: GELATIN SPONGE SZ 100 ONE (09:29)
[2017-06-05] MEDS ORDERED: BACITRACIN 50000 UNIT VIAL ONE (09:29)
[2017-06-05] MEDS ORDERED: VANCOMYCIN HCL 1000MG/20ML VIAL ONE (09:29)
[2017-06-05] MEDS ORDERED: THROMBIN FOR SOLN 20000 UNIT KIT ONE (09:29)
[2017-06-05] MEDS ORDERED: BUPIVACAINE 0.5 % 5 MG/1 ML MPF 30ML VIAL ONE (09:33)
--- NOTE | 2017-06-05 09:35 | Clinical Documentation Query ---
QUERY 1 OF [address] MAYER, In your clinical opinion is this patient being managed for: (+ ) Osteoporotic L3 vertebra fracture ( ) Not Agree ( ) Other explanation of clinical findings (Please Explain) ( ) Unable to determine (Please Define) ( ) Need to Discuss The medical record reflects the following clinical findings, treatment, and risk factors. Clinical Indicators: 66 yo male who developed constant low back pain after he bent over to tack picker an object. CXR showed the skeletal structures were osteopenic. Treatment: ortho consult, Lumbar spine xray, plan for OR, pain control. Risk Factors: age, DM QUERY 2 OF 3 In your clinical opinion is this patient being managed for: (+ ) Acute kidney failure ( ) Not Agree ( ) Other explanation of clinical findings (Please Explain) ( ) Unable to determine (Please Define) ( ) Need to Discuss The medical record reflects the following clinical findings, treatment, and risk factors. Clinical Indicators: 66 yo male presenting with L3 vertebra burst fracture. Initial Cr 1.3 which trended up to max of 1.50 and has since trended down to 0.94. Treatment: IV fluids, serial PRP's, hold losartan and HCTZ Risk Factors: age, HTN, DM QUERY 3 OF 3 In your clinical opinion is this patient being managed for: ( + ) possible/suspected/still to be ruled out Malignant neoplasm L lung ( ) Not Agree ( ) Other explanation of clinical findings (Please Explain) ( ) Unable to determine (Please Define) ( ) Need to Discuss The medical record reflects the following clinical findings, treatment, and risk factors. Clinical Indicators: CXR showed masslike consolidation in the subpleural left midlung as well as consolidative change at the left lung base. CT chest: indicates neoplastic process is dx of exclusion. Progress notes indicate no pneumonia. Treatment: CT guided bx by radiology ordered. Risk Factors: tobacco abuse Please clarify and document your clinical opinion in the progress notes and discharge summary. Terms such as "probable", "suspected", "likely", "questionable", "possible", or "still to be ruled out" are acceptable. IF IN AGREEMENT, YOU MUST DOCUMENT ABOVE DIAGNOSTIC STATEMENT IN DAILY PROGRESS NOTES AND DISCHARGE SUMMARY. This document is not part of the patient's record. Thank You, Rere Santana RN [phone]
[2017-06-05] MEDS ORDERED: NURSING VERBAL MED ORDER STA (09:36)
[2017-06-05] MEDS ORDERED: LARYING-O-JET KIT (LTA) ONE ×2 (10:19)
[2017-06-05] MEDS ORDERED: PROMETHAZINE HCL INJ 12.5 MG in SODIUM CHLORIDE 0.9% 50ML 50 ML IV PRN (12:45)
[2017-06-05] MEDS ORDERED: MAGNESIUM HYDROXIDE SUSP 30 ML UDC PO PRN (12:45)
[2017-06-05] MEDS ORDERED: LORAZEPAM INJ 1 MG in SYRINGE 0 ML IV PRN (12:45)
[2017-06-05] MEDS ORDERED: METOCLOPRAMIDE HCL INJ 5 MG/ML 2 ML VIAL IV PRN (12:45)
[2017-06-05] MEDS ORDERED: ACETAMINOPHEN 325 MG TAB PO PRN (12:45)
[2017-06-05] MEDS ORDERED: LORAZEPAM 1 MG TAB PO PRN (12:45)
--- NOTE | 2017-06-05 12:50 | [facility] Post Operative Brief Note ---
Immediate Operative Summary Operative Date Jun 05, 2017. Pre-Operative Diagnosis L3 Lumbar burst fracture with cauda equina compression, nerve root compromise, profound neurological deficits and instability. Post-Operative Diagnosis L3 Lumbar burst fracture with cauda equina compression, nerve root compromise, profound neurological deficits and instability. Procedure(s) Performed L3 Decompression,; [id number] Lumbar Intrumented Fusion. ( 5 Level fusion ); Open reduction L3 burst fracture Surgeon Clinical Documentation Manager Surgeon(s) Garett Rachel PA-C Estimated Blood Loss 200ml Findings Severe instability, severe compression Specimens None per surgeon Complication(s) None Disposition Surgical ICU
[2017-06-05] MEDS ORDERED: SODIUM CHLORIDE 0.9% 1000ML 1,000 ML IV SCH (12:58)
[2017-06-05] MEDS ORDERED: NALOXONE HCL 0.4 MG/1 ML VIAL/CARP IV PRN (13:00)
[2017-06-05] MEDS ORDERED: HYDROmorphone HCL 0.5MG/ML 50 ML CASSETTE ONE (13:11)
--- NOTE | 2017-06-05 13:19 | DIAGNOSTIC IMAGING REPORT ---
INTRAOPERATIVE RADIOGRAPHS CLINICAL HISTORY: Lumbar spinal fusion. Fluoroscopy time: 16 seconds. FINDINGS: 2 spot fluoroscopic views of the lumbar spine are presented. There has been laminectomy and posterior fusion from L1 -L5. Spinal rods are in place. Interpedicular screws are noted at all levels with the exception of L3. The orthopedic hardware appears intact. IMPRESSION: Intraoperative images from L1 -L5 spinal fusion as above. Electronically signed by: Jacky Solis M.D. 06/05/2017 1:17 PM Dictated Date/Time: 06/05/2017 1:16 PM
--- NOTE | 2017-06-05 13:20 | Anesthesiology Progress Note ---
Anesthesia Post Op Note Date & Time Jun 05, 2017 at 13:19 Vital Signs Pain Intensity: 2 Vital Signs Past 12 Hours Date Time Temp Pulse Resp B/P (MAP) Pulse Ox O2 Delivery O2 Flow Rate FiO2 06/05/17 13:00 84 16 184/81 100 Oxymask 10 06/05/17 12:50 36.8 90 16 166/99 100 Oxymask 10 06/05/17 08:59 80 16 95 Room Air 06/05/17 07:20 Room Air 06/05/17 07:09 36.8 69 20 166/77 (106) 94 Room Air Notes Mental Status: alert / awake / arousable, participated in evaluation Pt Amnestic to Procedure: Yes Nausea / Vomiting: adequately controlled Pain: adequately controlled Airway Patency, RR, SpO2: stable & adequate BP & HR: stable & adequate Hydration State: stable & adequate Anesthetic Complications: no major complications apparent
--- NOTE | 2017-06-05 13:40 | DIAGNOSTIC IMAGING REPORT ---
LUMBAR SPINE 2 VIEWS CLINICAL HISTORY: Postop laminectomy COMPARISON STUDY: 06/04/2017 FINDINGS: There is an L3 burst fracture. There are postsurgical changes of a posterior spinal fusion with pedicle screws and adjoining spinal rods at the L1, L2, L4, and L5 levels. There are overlying surgical drains and skin ulysses. IMPRESSION: L3 burst fracture. Postsurgical changes of an L1-L5 spinal fusion. Electronically signed by: Felix Brock M.D. 06/05/2017 1:38 PM Dictated Date/Time: 06/05/2017 1:37 PM
--- NOTE | 2017-06-05 14:02 | OPERATIVE REPORT ---
DATE OF OPERATION: 06/05/2017 PREOPERATIVE DIAGNOSIS: L3 burst fracture, gross instability, 3 column injury. Cauda equina compression. POSTOPERATIVE DIAGNOSIS: Same burst fracture L3, cauda equina compression and severe stenosis and severe instability. PROCEDURES: 1. Posterior approach lumbar spine, lumbar spine laminectomy of L2 and L3. 2. Pedicle screw instrumentation and fusion L1 through L5, 5 level instrumentated fusion. 3. Open reduction and internal fixation of the L3 burst fracture. SURGEON: Dr. Bull. CRUSHER FOREMAN: Garett Rachel PA-C. COMPLICATIONS: 0. BLOOD LOSS: 200. PROCEDURE: The patient was taken to the operating room, a general intubated anesthetic provided the patient, placed prone. He was first shaved, then scrubbed, then prepped and then draped sterile. Caldwell catheter administered as well. We made a skin incision from L1 down to L5 dissecting the soft tissue. We were careful all bleeding. We were careful with the instability in the fracture itself. We dissected free out to the transverse processes. Using C-arm guidance and anatomic landmarks we were safely able to instrument the spine and perform a closed reduction of the L3 burst fracture. We had pedicle screws L1-L2 and L4-L5 on the right and then likewise, L1, L2, L4 and L5 on the left hand side. This provided the anchors for the closed reduction. We then carefully decompressed the spinal neural elements. We did a laminectomy in this case of L3 and L2, a 2 level laminectomy. We were pleased with the reduction, the decompression, instrumentation. We then put the longitudinal dung in place 150 mm by the [employer]. We used 2 crosslinks as well to stabilize the spine, it was a very excellent construct, very good stability. We then bone grafted out over the transverse processes of L2, L3 and L4. We irrigated thoroughly with approximately 1/2 liter of solution. We placed Gelfoam over the exposed dura. Prior to closure, we actually looked at the compressed area and I felt it was fairly free of obstruction. We then placed vancomycin deep to the wound over the bone graft and over the soft tissue area. We closed the fascia to fascia with 1 Vicryl suture. We used 2-0 Vicryl subcuticular layer, both closed perfectly, both closed over vancomycin powder, staple gun used on the skin. Sterile dressing applied. The drain activated. The patient returned to PACU improved, stable. There were no apparent interoperative complications. Sponge and needle count correct. Implants used were by the [employer]. I attest to the content of the Intraoperative Record and any orders documented therein. Any exception s are noted below.
[2017-06-05] MEDS: HYDROmorphone HCL 0.5MG/ML 50 ML CASSETTE IV PRN ×3 (14:27→23:14)
[2017-06-05] MEDS: SODIUM CHLORIDE 0.9% 1000ML 1,000 ML IV SCH (14:30)
[2017-06-05] MEDS: FERROUS SULFATE 325 MG TAB PO SCH (14:38)
[2017-06-05] MEDS: ALLOPURINOL 100 MG TAB PO SCH (14:39)
[2017-06-05] MEDS: ATORVASTATIN 20 MG TAB PO SCH (14:39)
[2017-06-05] MEDS: LEVOFLOXACIN 750 MG TAB PO SCH (14:40)
[2017-06-05] MEDS: KETOROLAC TROMETHAMINE 15 MG/ML VIAL IV. SCH (18:07)
--- NOTE | 2017-06-05 18:11 | Progress Note ---
Internal Med Progress Note Date of Service: Jun 05, 2017. Provider Documentation: SUBJECTIVE: The patient was seen and examined S/P Lumbar Decompression and fusion Feels fine Denies any symptoms OBJECTIVE: Vital Signs-as noted below Exam: General-Nodistress at rest Eyes-normal ENT-normal Neck-supple Lungs-Clear to ausucltate bilaterally Heart-Regular,no murmur appreciated Abdomen-Benign,no masses,bowel sound present Extremities-No edema Neuro-AAOx3 Lab data as noted below. ASSESSMENT & PLAN: Cauda Equina Syndrome Presented with Bach pain with decreased functional capacity MRI showed MRI showed acute central compression deformity at L3 vertebral body and impingement of the cauda equina. Lumbar xray showed Findings consistent with L3 vertebral body fracture with depression of the superior endplate and slight anterior displacement of the large corner fracture fragment. Recent deterioration of the functional capacity He had a functional capacity greater than 4 before his back pain Denies any chest pain, palpitation, dizziness and SOB Last pharmacologic nuclear stress test in 05/2015 was negative for ischemia S/P Lumbar Decompression and Fusion today Doing Reasonably well following surgery Possible pneumonia CXR showed masslike consolidation in the subpleural left midlung as well as consolidative change at the left lung base Complaint of cough Afebrile, WBC elevated On day [address] of chest done showed Pleural-based spiculated mass left midlung laterally measuring 3.5 x 2.6 cm; pleural-based nodule measuring 1.6 cm superior segment left lower lobe. No sign of pneumonia Discontinue Levaquin tomorrow Lung Mass CT mass showed spiculated mass left midlung laterally measuring 3.5 x 2.6 cm case discussed with Pulmonary team that recommend CT guided bx case discuss with Radiology by Dr Turner , plan to do CT guided bx Will pursue that on improvement his post of ailment Hypertension Losartan on hold due to elevate creatine Will restart when Creatinine is down Creatinine is normalized Will restart BP meds Coronary artery disease Denies any chest pain stable DM2 Hba1c 6.1 (06/03/17) Controlled Oral med on hold continue insulin coverage DVT px on SCDs (for possible surgery) CODE STATUS FULL CODE Disposition Awaited Ortho Vital Signs: Date Time Temp Pulse Resp B/P (MAP) Pulse Ox O2 Delivery O2 Flow Rate FiO2 06/05/17 16:22 36.6 85 17 139/79 (99) 91 Room Air 06/05/17 15:49 36.9 81 17 160/84 (109) 97 Room Air 06/05/17 14:48 36.8 83 16 163/79 (107) 95 Nasal Cannula 3.0 06/05/17 14:32 96 Nasal Cannula 2.0 06/05/17 14:25 36.9 87 18 162/82 (108) 95 Nasal Cannula 2.0 06/05/17 14:05 84 16 156/72 94 Nasal Cannula 2 06/05/17 13:50 84 16 159/73 94 Nasal Cannula 2 06/05/17 13:40 37.3 84 16 165/74 94 Nasal Cannula 2 06/05/17 13:30 84 16 161/77 98 Nasal Cannula 2 06/05/17 13:20 84 16 179/85 98 Nasal Cannula 2 06/05/17 13:10 84 16 162/81 100 Oxymask 10 06/05/17 13:00 84 16 184/81 100 Oxymask 10 06/05/17 12:50 36.8 90 16 166/99 100 Oxymask 10 06/05/17 08:59 80 16 95 Room Air 06/05/17 07:20 Room Air 06/05/17 07:09 36.8 69 20 166/77 (106) 94 Room Air 06/05/17 00:00 Room Air 06/05/17 00:00 70 158/78 (104) 06/04/17 23:05 37.0 70 16 161/64 (96) 94 Room Air 06/04/17 19:30 165/91 (115) Lab Results: Results Past 24 Hours Test 06/05/17 07:51 06/05/17 08:09 06/05/17 12:53 Range/Units White Blood Count 11.96 4.8-10.8 K/uL Red Blood Count 4.11 4.7-6.1 M/uL Hemoglobin 12.0 14.0-18.0 g/dL Hematocrit 35.5 42-52 % Mean Corpuscular Volume 86.4 80-100 fL Mean Corpuscular Hemoglobin 29.2 25-34 pg Mean Corpuscular Hemoglobin Concent 33.8 32-36 g/dl Platelet Count 316 130-400 K/uL Mean Platelet Volume 10.9 7.4-10.4 fL Neutrophils (%) (Auto) 75.4 % Lymphocytes (%) (Auto) 12.0 % Monocytes (%) (Auto) 9.4 % Eosinophils (%) (Auto) 2.3 % Basophils (%) (Auto) 0.1 % Neutrophils # (Auto) 9.02 1.4-6.5 K/uL Lymphocytes # (Auto) 1.43 1.2-3.4 K/uL Monocytes # (Auto) 1.12 0.11-0.59 K/uL Eosinophils # (Auto) 0.28 0-0.5 K/uL Basophils # (Auto) 0.01 0-0.2 K/uL RDW Standard Deviation 42.5 36.4-46.3 fL RDW Coefficient of Variation 13.5 11.5-14.5 % Immature Granulocyte % (Auto) 0.8 % Immature Granulocyte # (Auto) 0.10 0.00-0.02 K/uL Sodium Level 135 136-145 mmol/L Potassium Level 4.1 3.5-5.1 mmol/L Chloride Level 101 98-107 mmol/L Carbon Dioxide Level 28 21-32 mmol/L Anion Gap 6.0 3-11 mmol/L Blood Urea Nitrogen 27 7-18 mg/dl Creatinine 0.94 0.60-1.40 mg/dl Est Creatinine Clear Calc Drug Dose 76.3 ml/min Estimated GFR () 96.8 Estimated GFR (Non- 83.6 BUN/Creatinine Ratio 28.5 10-20 Random Glucose 142 70-99 mg/dl Calcium Level 9.7 8.5-10.1 mg/dl Bedside Glucose 144 129 70-99 mg/dl
[2017-06-05] MEDS ORDERED: DICLOFENAC SOD EC 75 MG TABCR PO SCH (21:00)
[2017-06-06] MEDS: KETOROLAC TROMETHAMINE 15 MG/ML VIAL IV. SCH ×4 (00:50→17:58)
[2017-06-06] MEDS: SODIUM CHLORIDE 0.9% 1000ML 1,000 ML IV SCH ×2 (00:50→13:33)
[2017-06-06 03:17] VITALS: BP 139/70; PULSE 77; TEMP 37.2; O2SAT 94
[2017-06-06] MEDS ORDERED: HYDROmorphone INJ 1 MG/ML SYR IV PRN (06:00)
[2017-06-06] MEDS ORDERED: BISACODYL 10 MG SUPP PR PRN (06:00)
[2017-06-06] MEDS ORDERED: HYDROmorphone INJ 2 MG/ML SYR/VIAL IV PRN (06:00)
[2017-06-06] MEDS ORDERED: BISACODYL 5 MG TABEC PO PRN (06:00)
[2017-06-06] MEDS ORDERED: DC PCA SCH (06:00)
[2017-06-06] MEDS: LEVOTHYROXINE 50 MCG TAB PO SCH (06:35)
[2017-06-06 07:00] LABS: BASO % 0.1 %; BASO ABS # 0.01 K/uL (0-0.2); COMPLETE YES; EOS % 2.1 %; HEMATOCRIT 28.9 % (42-52); IG% 0.8 %; LYMPH ABS # 1.21 K/uL (1.2-3.4); MEAN CORPUSCULAR HEMOGLOBIN 29.2 pg (25-34); MEAN CORPUSCULAR HGB CONC 33.6 g/dl (32-36); MEAN PLATELET VOLUME 11.1 fL (7.4-10.4); MONO % 9.2 %; NEUT % 78.8 %; PLATELET COUNT 255 K/uL (130-400); RED BLOOD COUNT 3.32 M/uL (4.7-6.1)
[2017-06-06 07:49] VITALS: BP 153/77; PULSE 73; TEMP 36.8; O2SAT 96
[2017-06-06] MEDS: INSULIN ASPART 100 UNITS/ML 3 ML PEN SC SCH ×4 (08:00→20:45)
[2017-06-06] MEDS ORDERED: OXYCODONE/ACETAMINOPHEN 5-325 TAB PO PRN (08:00)
--- NOTE | 2017-06-06 08:27 | PROGRESS NOTE ---
DATE: 06/06/2017 DATE: 06/06/2017 SUBJECTIVE: Moderate complaints of pain. Still some numbness, tingling, improvement of his lower extremity strength. Denies any chest pain, shortness of breath. No confusion. OBJECTIVE: Vital signs stable. Hemoglobin 9.7. Afebrile. ASSESSMENT: Status post lumbar spine reconstruction spine surgery for a burst fracture, pneumonia, chronic anemia. DISPOSITION: Will try to get him up with physical therapy today with a walker for support. I would like to have him transferred to home health with home health agency or [facility] or an equivalent. I anticipate his discharge to be the evening of the which is tomorrow or the morning of the .
[2017-06-06] MEDS: METFORMIN HCL 500 MG TAB PO SCH ×2 (08:28→18:30)
--- NOTE | 2017-06-06 08:28 | Anesthesiology Progress Note ---
Anesthesia Post Op Note Date & Time Jun 06, 2017 at 08:28 Vital Signs Pain Intensity: 0.0 Vital Signs Past 12 Hours Date Time Temp Pulse Resp B/P (MAP) Pulse Ox O2 Delivery O2 Flow Rate FiO2 06/06/17 07:49 36.8 73 18 153/77 (102) 96 Room Air 06/06/17 03:17 37.2 77 14 139/70 (93) 94 Room Air 06/06/17 00:00 Room Air 06/05/17 23:04 36.9 77 14 137/67 (90) 97 Room Air Notes Mental Status: alert / awake / arousable, participated in evaluation Pt Amnestic to Procedure: Yes Nausea / Vomiting: adequately controlled Pain: adequately controlled Airway Patency, RR, SpO2: stable & adequate BP & HR: stable & adequate Hydration State: stable & adequate Anesthetic Complications: no major complications apparent
[2017-06-06] MEDS: LEVOFLOXACIN 750 MG TAB PO SCH (08:29)
[2017-06-06] MEDS: ASPIRIN 81 MG ECTAB PO SCH (08:29)
[2017-06-06] MEDS: ALLOPURINOL 100 MG TAB PO SCH (08:29)
[2017-06-06] MEDS: FERROUS SULFATE 325 MG TAB PO SCH (08:30)
[2017-06-06] MEDS: ATORVASTATIN 20 MG TAB PO SCH (08:30)
[2017-06-06] MEDS: POLYETHYLENE (MIRALAX) 17 GM PACK PO SCH (08:30)
[2017-06-06] MEDS: OMEGA-3 (PURIFIED FISH OIL) 1 GM CAP PO SCH (08:30)
[2017-06-06] MEDS: LOSARTAN/HCTZ 50-12.5 EA TAB PO SCH (08:30)
[2017-06-06] MEDS: LIDODERM (LIDOCAINE) PATCH 5% TD SCH (08:31)
[2017-06-06] MEDS ORDERED: INFLUENZA VACCINE HIGH DOSE 65+ 0.5 ML SYR IM. ONE (08:45)
[2017-06-06] MEDS ORDERED: INFLUENZA ADMINISTRATION CHARGE ONE (08:45)
[2017-06-06 11:25] VITALS: BP 152/65; PULSE 87; TEMP 36.8; O2SAT 95
--- NOTE | 2017-06-06 13:30 | Progress Note ---
Internal Med Progress Note Date of Service: Jun 06, 2017. Provider Documentation: SUBJECTIVE: The patient was seen and examined S/P Lumbar Decompression and fusion Feels fine Denies any symptoms Discussed about the Lung finding OBJECTIVE: Vital Signs-as noted below Exam: General-Nodistress at rest Eyes-normal ENT-normal Neck-supple Lungs-Clear to ausucltate bilaterally Heart-Regular,no murmur appreciated Abdomen-Benign,no masses,bowel sound present Extremities-No edema Neuro-AAOx3 Lab data as noted below. ASSESSMENT & PLAN: Cauda Equina Syndrome Presented with Bach pain with decreased functional capacity MRI showed MRI showed acute central compression deformity at L3 vertebral body and impingement of the cauda equina. Lumbar xray showed Findings consistent with L3 vertebral body fracture with depression of the superior endplate and slight anterior displacement of the large corner fracture fragment. Recent deterioration of the functional capacity He had a functional capacity greater than 4 before his back pain Denies any chest pain, palpitation, dizziness and SOB Last pharmacologic nuclear stress test in 05/2015 was negative for ischemia Status post lumbar spine reconstruction spine surgery for a burst fracture Doing Reasonably well following surgery Getting Physical therapy L3 Vertebral Body Fracture Likely Osteoporotic Could be pathologic in the setting of Lung/Pleural mass Possible pneumonia CXR showed masslike consolidation in the subpleural left midlung as well as consolidative change at the left lung base Complaint of cough Afebrile, WBC elevated On day [address] of chest done showed Pleural-based spiculated mass left midlung laterally measuring 3.5 x 2.6 cm; pleural-based nodule measuring 1.6 cm superior segment left lower lobe. No sign of pneumonia Discontinue Levaquin tomorrow Possible/Suspected Pulmonary Malignancy to be ruled out CT mass showed spiculated mass left midlung laterally measuring 3.5 x 2.6 cm case discussed with Pulmonary team that recommend CT guided bx case discuss with Radiology by Dr Turner , plan to do CT guided bx Will pursue that on improvement his post of ailment Pulmonary consulted -appreciate Input May go for Biopsy today or as an OP in near future Hypertension Losartan on hold due to elevate creatine Will restart when Creatinine is down Creatinine is normalized Will restart BP meds NATALIYA Creatinine went up to 1.5 Resolved with Dydration Coronary artery disease Denies any chest pain stable DM2 Hba1c 6.1 (06/03/17) Controlled Oral med on hold continue insulin coverage DVT px on SCDs (for possible surgery) CODE STATUS FULL CODE Disposition Awaited Ortho Vital Signs: Date Time Temp Pulse Resp B/P (MAP) Pulse Ox O2 Delivery O2 Flow Rate FiO2 06/06/17 11:25 36.8 87 19 152/65 (94) 95 Room Air 06/06/17 07:49 36.8 73 18 153/77 (102) 96 Room Air 06/06/17 07:15 Room Air 06/06/17 03:17 37.2 77 14 139/70 (93) 94 Room Air 06/06/17 00:00 Room Air 06/05/17 23:04 36.9 77 14 137/67 (90) 97 Room Air 06/05/17 19:01 36.6 95 17 139/73 (95) 95 Room Air 06/05/17 16:22 36.6 85 17 139/79 (99) 91 Room Air 06/05/17 16:00 Room Air 06/05/17 15:49 36.9 81 17 160/84 (109) 97 Room Air 06/05/17 14:48 36.8 83 16 163/79 (107) 95 Nasal Cannula 3.0 06/05/17 14:32 96 Nasal Cannula 2.0 06/05/17 14:25 36.9 87 18 162/82 (108) 95 Nasal Cannula 2.0 06/05/17 14:05 84 16 156/72 94 Nasal Cannula 2 06/05/17 13:50 84 16 159/73 94 Nasal Cannula 2 06/05/17 13:40 37.3 84 16 165/74 94 Nasal Cannula 2 06/05/17 13:30 84 16 161/77 98 Nasal Cannula 2 Lab Results: Results Past 24 Hours Test 06/05/17 17:31 06/05/17 20:19 06/06/17 06:15 06/06/17 08:02 Range/Units Bedside Glucose 160 183 144 70-99 mg/dl White Blood Count 13.40 4.8-10.8 K/uL Red Blood Count 3.32 4.7-6.1 M/uL Hemoglobin 9.7 14.0-18.0 g/dL Hematocrit 28.9 42-52 % Mean Corpuscular Volume 87.0 80-100 fL Mean Corpuscular Hemoglobin 29.2 25-34 pg Mean Corpuscular Hemoglobin Concent 33.6 32-36 g/dl Platelet Count 255 130-400 K/uL Mean Platelet Volume 11.1 7.4-10.4 fL Neutrophils (%) (Auto) 78.8 % Lymphocytes (%) (Auto) 9.0 % Monocytes (%) (Auto) 9.2 % Eosinophils (%) (Auto) 2.1 % Basophils (%) (Auto) 0.1 % Neutrophils # (Auto) 10.56 1.4-6.5 K/uL Lymphocytes # (Auto) 1.21 1.2-3.4 K/uL Monocytes # (Auto) 1.23 0.11-0.59 K/uL Eosinophils # (Auto) 0.28 0-0.5 K/uL Basophils # (Auto) 0.01 0-0.2 K/uL RDW Standard Deviation 43.1 36.4-46.3 fL RDW Coefficient of Variation 13.5 11.5-14.5 % Immature Granulocyte % (Auto) 0.8 % Immature Granulocyte # (Auto) 0.11 0.00-0.02 K/uL Test 06/06/17 12:12 Range/Units Bedside Glucose 167 70-99 mg/dl
--- NOTE | 2017-06-06 13:45 | Pulmonary Consultation ---
History General Date of Service: Jun 06, 2017. Stated Complaint: Cauda Equina Compression HPI Patient is a 66 yo male with history of DM2, HTN, Hyperlipidemia, rheumatic fever, CAD, and tobacco use on and off (1ppd when smoking) for approximately 40 years who presented to the ED with complaint of lower back pain. 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 The patient was found to have L3 burst fracture and cauda equina compression. Since admission, the patient is now s/p lumbar laminectomy of L2/L3, pedicle screw instrumentation nand fusion L1 through L5,a nd ORIF L3 burst fx. Since admission, the patient had a chest CT completed which showed a spiculated mass in the left midlung which is pleural based and approximately 3.5x2.6 cm along with a LLL 1.6 cm nodule and reticulonodular pattern of the JOANNA. Possible hilar adenopathy is also noted due to hilar thickening, but this is uncertain due to lack of IV contrast on exam. Images were viewed and reviewed with Dr. Wellington. Labs throughout admission were reviewed. The patient's currently labs show WBC 13.40, Hgb 9.7, Creatinine 0.94, BUN 27, and stable electrolytes. VS reviewed as well. Patient has been saturating well on room air. HR 87 this morning, afebrile. He states that he does have an on and of chronic cough. He denies SOB, Chest pain, left sided back pain, palpitations, CANCHOLA. The patient has been a long time smoker as listed above, but has not been smoking for about 2 years now. His father of lung CA at the age of 70. Historian: patient Review of Systems Constitutional: denies: chills, fever Eyes: denies: visual changes ENT: denies: loss of hearing Cardiovascular: denies: chest pain, chest pressure, chest tightness Respiratory: reports: cough (chronic on and off. Mild), denies: shortness of breath, wheezing, CANCHOLA Gastrointestinal: denies: abdominal pain, diarrhea Genitourinary - Male: denies: dysuria Neurologic: denies: headache, general weakness All Other Symptoms All Other Systems: Reviewed and Negative Past Medical History Past Medical History: As listed in HPI. Past Surgical History: As listed in HPI. Family History Father hx lung CA Social History Hx Tobacco Use In Past Year?: No Smoking Status: Former Smoker Marital status: Allergies Coded Allergies: No Known Allergies (Unverified , 06/02/17) Current Medications Reported Home Medications Medications Dose Route/Sig Max Daily Dose Days Date Category Dose Instructions Percocet 5MG/325MG (Oxycodone/Acetaminophen) Tab 1 Tablet PO Q4H PRN 06/02/17 Reported PAIN Lioresal (Baclofen) 10 Mg Tab 10 Mg PO TID/PRN 06/02/17 Reported Voltaren (Diclofenac Sodium) 75 Mg Tabcr 75 Mg PO BID 06/02/17 Reported WITH FOOD Glipizide Er (Glipizide) 10 Mg Tab 10 Mg PO DAILY 06/02/17 Reported Lipitor (Atorvastatin Calcium) 20 Mg Tab 20 Mg PO DAILY 06/02/17 Reported Levothyroxine Sodium 50 Mcg Tab 50 Mcg PO DAILY 06/02/17 Reported Hyzaar 25MG/100MG (HCTZ/Losartan Potassium) Tab 1 Tab PO DAILY 06/02/17 Reported Iron (Ferrous Sulfate) 325 Mg Tab 325 Mg PO DAILY 06/02/17 Reported Aspirin Ec (Aspirin) 81 Mg Tab 81 Mg PO DAILY 06/02/17 Reported [place]-3 (Fish Oil) 1 Ea Cap 1,400 Mg PO DAILY 06/02/17 Reported Glucophage (Metformin Hcl) 1,000 Mg Tab 1,000 Mg PO BID 06/02/17 Reported Zyloprim (Allopurinol) 100 Mg Tab 150 Mg PO DAILY 06/02/17 Reported 1 1/2 TABLET DOSE Physical Physical Exam Vital Signs: Date Time Temp Pulse Resp B/P (MAP) Pulse Ox O2 Delivery O2 Flow Rate FiO2 06/06/17 11:25 36.8 87 19 152/65 (94) 95 Room Air 06/06/17 07:49 36.8 73 18 153/77 (102) 96 Room Air 06/06/17 07:15 Room Air 06/06/17 03:17 37.2 77 14 139/70 (93) 94 Room Air 06/06/17 00:00 Room Air 06/05/17 23:04 36.9 77 14 137/67 (90) 97 Room Air 06/05/17 19:01 36.6 95 17 139/73 (95) 95 Room Air 06/05/17 16:22 36.6 85 17 139/79 (99) 91 Room Air 06/05/17 16:00 Room Air 06/05/17 15:49 36.9 81 17 160/84 (109) 97 Room Air 06/05/17 14:48 36.8 83 16 163/79 (107) 95 Nasal Cannula 3.0 06/05/17 14:32 96 Nasal Cannula 2.0 06/05/17 14:25 36.9 87 18 162/82 (108) 95 Nasal Cannula 2.0 06/05/17 14:05 84 16 156/72 94 Nasal Cannula 2 06/05/17 13:50 84 16 159/73 94 Nasal Cannula 2 06/05/17 13:40 37.3 84 16 165/74 94 Nasal Cannula 2 General Appearance: WELL-APPEARING, WD/WN, NO APPARENT DISTRESS Head: NORMOCEPHALIC, ATRAUMATIC Eyes: PERRLA, SCLERAE NORMAL ENT: other (hearing intact) Neck: TRACHEA MIDLINE, NO STRIDOR Respiratory: BREATH SOUNDS NORMAL, CLEAR TO AUSCULTATION, CLEAR TO PERCUSSION, NO RESPIRATORY DISTRESS, NO TENDERNESS Cardiovasular: REGULAR RATE/RHYTHM Abdomen: NON TENDER, NORMAL BOWEL SOUNDS Back: NORMAL INSPECTION Lower Extremities: NO EDEMA, NO DEFORMITY Neuro: ALERT, ORIENTED x 3 Psychiatric: NORMAL AFFECT Diagnostics Labs Results Past 24 Hours Test 06/05/17 17:31 06/05/17 20:19 06/06/17 06:15 06/06/17 08:02 Range/Units Bedside Glucose 160 183 144 70-99 mg/dl White Blood Count 13.40 4.8-10.8 K/uL Red Blood Count 3.32 4.7-6.1 M/uL Hemoglobin 9.7 14.0-18.0 g/dL Hematocrit 28.9 42-52 % Mean Corpuscular Volume 87.0 80-100 fL Mean Corpuscular Hemoglobin 29.2 25-34 pg Mean Corpuscular Hemoglobin Concent 33.6 32-36 g/dl Platelet Count 255 130-400 K/uL Mean Platelet Volume 11.1 7.4-10.4 fL Neutrophils (%) (Auto) 78.8 % Lymphocytes (%) (Auto) 9.0 % Monocytes (%) (Auto) 9.2 % Eosinophils (%) (Auto) 2.1 % Basophils (%) (Auto) 0.1 % Neutrophils # (Auto) 10.56 1.4-6.5 K/uL Lymphocytes # (Auto) 1.21 1.2-3.4 K/uL Monocytes # (Auto) 1.23 0.11-0.59 K/uL Eosinophils # (Auto) 0.28 0-0.5 K/uL Basophils # (Auto) 0.01 0-0.2 K/uL RDW Standard Deviation 43.1 36.4-46.3 fL RDW Coefficient of Variation 13.5 11.5-14.5 % Immature Granulocyte % (Auto) 0.8 % Immature Granulocyte # (Auto) 0.11 0.00-0.02 K/uL Test 06/06/17 12:12 Range/Units Bedside Glucose 167 70-99 mg/dl Diagnostic Radiology (CHEST) THORAX WITHOUT CT DOSE: 408.71 mGy.cm HISTORY: Abnormal chest x-ray Mass like consolidation on x-ray TECHNIQUE: Multiaxial CT images of the chest were performed without contrast. A dose lowering technique was utilized adhering to the principles of ALARA. COMPARISON: Chest series and 8 FINDINGS: Emphysematous and interstitial change throughout both hemithoraces. Pleural-based spiculated mass process peripheral left midlung measuring 3.5 x 2.6 cm. Additional poorly defined Nodule superior segment left lower lobe measuring 1.6 cm. Somewhat reticular nodular-type pattern to the left upper lobe in the left suprahilar region. Additional nodularity may be present. Somewhat bulky mediastinal and hilar regions extremely difficult to evaluate due to the absence of intravenous contrast enhancement. Significant adenopathy may be present. IMPRESSION: 1. Emphysematous and interstitial change throughout both hemithoraces. 2. Pleural-based spiculated mass left midlung laterally measuring 3.5 x 2.6 cm. 3. Additional pleural-based nodule measuring 1.6 cm superior segment left lower lobe. 4. Left perihilar fibrotic and/or reticular nodular change 6. Poor definition of the normal structures of the hilar and mediastinal regions raising the possibility of significant adenopathy. 7. A neoplastic process is the diagnosis of exclusion EKG EKG on admission: NSR, RBBB, Left axis deviation. Viewed. Impression Assessment and Plan Left Midlung Mass LLL nodule Hx tobacco use Fam Hx Lung CA (father) S/P Lumbar surgery Patient with a lung mass and also lung nodule in the setting of family hx of Lung CA and also personal history of long tobacco use. The patient is currently hospitalized due to back pain and now is s/p lumbar surgery. The patient does want workup in regards to lung mass/nodule. Ideally, could do transthoracic needle bx while patient is inpatient, but seems likely that the patient will be discharged this weekend. Do not want the lung workup to hold up patient's D/C. However, recommend that he have PET/CT as soon as possible next week and then will likely set the patient up for either outpatient transthoracic needle bx or EBUS with ENB for diagnostic evaluation of lung mass and nodule. I will discuss with our outpatient mental measurements teacher when we would be able to get this patient set up for PET and also for diagnostic procedure. Discussed with Dr. Wellington and Dr. Hughes. Patient has been seen and examined and case reviewed. Patient is overall considered high risk for primary lung carcinoma. We would like to proceed as quickly as possible to perform both staging as well as diagnostic evaluation of his current pulmonary nodule and mediastinal lymphadenopathy. We are currently trying move the patient into a or opening on Friday06/08/2017. If we are unable to do this the will have the patient follow up with immediately in the Pulmonary Department perform outpatient PET scan and get him back into the OR for evaluation.
[2017-06-06 15:00] VITALS: BP 110/67; PULSE 110; TEMP 36.7; O2SAT 96
[2017-06-06] MEDS: OXYCODONE/ACETAMINOPHEN 5-325 TAB PO PRN (17:32)
[2017-06-06] MEDS ORDERED: NURSING VERBAL MED ORDER ONE (19:30)
[2017-06-06 23:03] VITALS: BP 142/71; PULSE 81; TEMP 36.9; O2SAT 99
[2017-06-07] MEDS: LEVOTHYROXINE 50 MCG TAB PO SCH (06:34)
[2017-06-07 06:50] LABS: BASO % 0.1 %; BASO ABS # 0.01 K/uL (0-0.2); COMPLETE YES; EOS % 2.8 %; HEMATOCRIT 28.1 % (42-52); IG% 0.8 %; LYMPH % 7.7 %; LYMPH ABS # 1.24 K/uL (1.2-3.4); MEAN CORPUSCULAR HEMOGLOBIN 29.1 pg (25-34); MEAN CORPUSCULAR HGB CONC 33.5 g/dl (32-36); MEAN PLATELET VOLUME 11.3 fL (7.4-10.4); MONO % 8.7 %; NEUT % 79.9 %; PLATELET COUNT 255 K/uL (130-400); RED BLOOD COUNT 3.23 M/uL (4.7-6.1); WHITE BLOOD COUNT 16.03 K/uL (4.8-10.8)
[2017-06-07 07:05] VITALS: BP 156/77; PULSE 85; TEMP 37.1; O2SAT 94
[2017-06-07] MEDS: OXYCODONE/ACETAMINOPHEN 5-325 TAB PO PRN ×2 (07:36→12:36)
[2017-06-07] MEDS: INSULIN ASPART 100 UNITS/ML 3 ML PEN SC SCH (08:00)
[2017-06-07] MEDS: POLYETHYLENE (MIRALAX) 17 GM PACK PO SCH (08:32)
[2017-06-07] MEDS: LOSARTAN/HCTZ 50-12.5 EA TAB PO SCH (08:35)
[2017-06-07] MEDS: LEVOFLOXACIN 750 MG TAB PO SCH (08:35)
[2017-06-07] MEDS: OMEGA-3 (PURIFIED FISH OIL) 1 GM CAP PO SCH (08:35)
[2017-06-07] MEDS: METFORMIN HCL 500 MG TAB PO SCH (08:36)
[2017-06-07] MEDS: LIDODERM (LIDOCAINE) PATCH 5% TD SCH (08:37)
[2017-06-07] MEDS ORDERED: OXYC-57 PO (09:07)
--- NOTE | 2017-06-07 09:09 | Discharge Instructions ---
Discharge Instructions Date of Service Jun 07, 2017. Admission Reason for Admission: Cauda Equina Compression Discharge Discharge Diagnosis / Problem: same. reconstructive spine surgery Discharge Goals Goal(s): Improve function Activity Recommendations Activity Limitations: as noted below Lifting Limitations: until after follow-up appointment Exercise/Sports Limitations: until after follow-up appointment May Resume Sexual Activity: after follow-up appointment Shower/Bathe: keep incision dry Driving or Machine Use: home, rest, short walks, recover . Instructions / Follow-Up Instructions / Follow-Up MEDICATIONS: Please take your prescriptions as instructed at your pre-op appointment. SPECIAL CARE: The following information is intended to answer some of the common questions and concerns regarding your surgery. Each patient is an individual and receives individual counselling throughout the course of treatment, from diagnosis to surgery all the way through recovery. What follows is not an exhaustive list, but should be a useful guide to some of the common questions and concerns patients have regarding their surgeries. These are not provided to keep you from calling us; rather, they give you something accurate and concrete to reference as you recover from your procedure. If you need us, we are available to you. As always, if you are not sure about something, call us at [phone]. MEDICAL EMERGENCIES: For these conditions, call 911 or go to your local hospital-based Emergency Department - not [facility] or equivalent. * Paralysis * Severe chest pain or difficulty breathing * Swelling or redness of either leg Spine procedures can be rather complex and though complications are rare, they do occur. In such cases, effective advice regarding emergency situations cannot always be addressed over the telephone. You may be referred to the emergency department for more effective management of your problem. Activity Limitations: It is important to give your body time to heal, so please limit your activities : * In general, don't do anything that moves your spine too much. You should avoid contact sports, twisting or heavy lifting while you recover. * 5-10 pounds is all you should attempt to lift. * You should not plan on driving for approximately 3 weeks and you should avoid traveling more than 30-45 minutes at a time. Longer trips should be broken down with walking breaks spaced appropriately. * Physical therapy is not usually required. * Walking and good posture practices will help you recover and regain your function. * Avoid straining or sudden changes in position. * In general, the goal is to take it easy and recover. Don't cause any new problems. Just relax. Showers: * Do not take a bath, use a Jacuzzi or hot tub or otherwise submerge your incision. * It is usually safe to take a shower 4-5 days after your surgery. * Your incision does not require any special creams or ointments. * Simply clean it with soap and water, dry and re-dress with a clean bandage afterwards. Incision: * Keep incision clean, dry and protected until your first follow-up appointment. * Some amount of drainage and redness is normal. Any drainage should be fairly clear and not have a foul odor. * If you feel anything is wrong or you have excessive drainage, please call us. * Your stitches and ulysses will be removed 10-14 days after your surgery. At the time of your first post-op visit. * Neck surgeries are typically closed with a suture underneath the skin. The steri-strips over the incision should be maintained until we see you in the office. Bracing: * You may be provided with a back or neck brace to encourage good posture and prevent injury. It will remind you not to do too much as you heal and will alert others to the fact that you have had a surgery. * Back braces may be removed for showers and when you are resting at home. They must be worn when you are walking around for any period of time or for travel. * For neck surgery, you will likely be provided with two cervical collars. The soft collar (Sayre or foam rubber) is worn most commonly throughout the day and while sleeping. The plastic collar (provided at the hospital) is for showering/bathing. * Except while eating, collars should remain in place. More specifically, bracing is provided for a purpose and should be worn. * Please obtain your brace or collars prior to your operation and bring them to the hospital with you on the day of surgery. * You should also bring your collars to your post-op appointment with Dr. Bull. You should always take good care of your body and practice healthy habits, especially following surgery. You should: * Follow your doctor's treatment plan * Sit and stand properly with good posture (ears over shoulders, shoulders over hips) Don't slouch * Learn to lift correctly * Exercise regularly (low-impact aerobic exercise is especially good, but check with your doctor first) * Generally, be up and walking for 5-10 minutes at a time at least 3-4 times per day from the day you get home * Increasing walking to tolerance until you can walk for 20-30 minutes at a time * Attain and maintain a healthy body weight * Eat healthy foods ( a well-balanced, low-fat diet rich in fruits and vegetables) and get enough calcium * Avoid excessive use of alcohol When to call our office - If you notice any of the following: * Increased pain not relieve by pain medicine * Fevers greater then 100 degrees F, chills or flu symptoms * Increased redness around incision * Drainage from the incision that is not clear * Any foul smelling drainage * Swelling or fluid collection beneath the skin Miscellaneous: * In the hospital, you may be given a walker or cane for support while walking. These are temporary needs and are intended to prevent injuries due to falls. You may discontinue them when you feel strong and steady enough on your feet. * Sleep in a comfortable position. We find that many patients find a lounge chair or recliner with several pillows to be beneficial in the early post-operative period. * The support stockings should be used for 7-10 days and may be discontinued when you are back to walking more and conducting usual household activities. No problem is insignificant. We are here to help you and get you well. Contact us at [phone]. Definitions: Foraminotomy: If part of the disc or a bone spur (osteophyte) is pressing on a nerve as it leaves the vertebra (through an exit called the foramen), a foraminotomy may be done. Otomy means "to make an opening." A foraminotomy is making the opening of the foramen larger, so the nerve can exit without being compressed. Laminotomy: Similar to the foraminotomy, a laminotomy makes a larger opening, this time in your bony plate protecting your spinal canal and spinal cord (the lamina). The lamina may be pressing on your nerve, so the surgeon may make more room for the nerves using a laminotomy. Laminectomy: Sometimes, a laminotomy is not sufficient. The surgeon may need to remove all or part of the lamina. This procedure is called a laminectomy. This can often be done at many levels without any harmful effects. Current Hospital Diet Patient's current hospital diet: AHA Diet (Heart Healthy), Diabetes Type 2 Diet Discharge Diet Recommended Diet: Diabetes Type 2 Diet Procedures Procedures Performed: L3 Decompression,; [id number] Lumbar Intrumented Fusion. ( 5 Level fusion ); Open reduction L3 burst fracture Pending Studies Studies pending at discharge: no Laboratory Results Hemoglobin A1c Test 06/02/17 00:57 Range/Units Estimated Average Glucose 128 mg/dl Hemoglobin A1c 6.1 H 4.5-5.6 % Medical Emergencies . Who to Call and When: Medical Emergencies: If at any time you feel your situation is an emergency, please call 911 immediately. . Non-Emergent Contact Non-Emergency issues call your: Primary Care Provider Call Non-Emergent contact if: you have any medication questions . "Provider Documentation" section prepared by Edmond Bull. . VTE Core Measure Inpt VTE Proph given/why not?: Treatment not indicated
[2017-06-07] MEDS: ATORVASTATIN 20 MG TAB PO SCH (09:10)
[2017-06-07] MEDS: ALLOPURINOL 100 MG TAB PO SCH (09:10)
[2017-06-07] MEDS: FERROUS SULFATE 325 MG TAB PO SCH (09:10)
[2017-06-07] MEDS: ASPIRIN 81 MG ECTAB PO SCH (09:10)
--- NOTE | 2017-06-07 09:43 | DISCHARGE SUMMARY ---
DATE OF DISCHARGE: 06/06/2017 SUBJECTIVE: Minimal complaints of pain. Alert, oriented, no shortness of breath. Still productive cough. He also has improvement of his neurological function. He has improvement of strength to his lower extremities. OBJECTIVE: Vital signs stable, afebrile, slightly anemic. Wound is pristine. IMPRESSION: Status post reconstructive spine surgery, multiple other medical problems, resolving pneumonia and chronic anemia. DISPOSITION: From an orthopedic standpoint, will try to discharge him home later on this afternoon. He will be seen by the medical team early this morning. Hopefully, he can be discharged. He has a prescription for Percocet on his chart. He has a prescription for a rolling walker on his chart. His dressing has been changed, should be changed about every 72 hours. He is to call [phone] make an appointment with us at [facility] in approximately 10 days. He is if any problems should arise, more minor problems can be directed to his primary care physician.
[2017-06-07 11:58] VITALS: BP 156/77; PULSE 85; TEMP 37.1; O2SAT 94
[2017-06-17] MEDS ORDERED: ALLO100T PO (10:26)
[2017-06-24] MEDS ORDERED: antibiotic (07:52)
== END 2017-06-07 13:14 | disposition home or self-care (01) | DRG 459 ==
LOC: C.EDB 19:41 → C.MSW 06-03 01:10 → ENRESERV 06-03 01:16
PROVIDERS: ADMIT Internal Medicine; ATTEND Internal Medicine
PROC: 0QS004Z Reposition Lumbar Vertebra with Internal Fixation Device, Open Approach (ICD-10-PCS; principal; 2017-06-05 09:30)
PROC: 0SG1071 Fusion of 2 or more Lumbar Vertebral Joints with Autologous Tissue Substitute, Posterior Approach, Posterior Column, Open Approach (ICD-10-PCS; principal; 2017-06-05 09:30)
DX: S32.032A Unstable burst fracture of third lumbar vertebra, initial encounter for closed fracture (principal); J18.9 Pneumonia, unspecified organism; G83.4 Cauda equina syndrome; R91.8 Other nonspecific abnormal finding of lung field; I10 Essential (primary) hypertension; E78.5 Hyperlipidemia, unspecified; E11.9 Type 2 diabetes mellitus without complications; I25.10 Atherosclerotic heart disease of native coronary artery without angina pectoris; D64.9 Anemia, unspecified; F17.200 Nicotine dependence, unspecified, uncomplicated; Z79.82 Long term (current) use of aspirin; Z79.84 Long term (current) use of oral hypoglycemic drugs; Z79.899 Other long term (current) drug therapy; Z80.1 Family history of malignant neoplasm of trachea, bronchus and lung; X58.XXXA Exposure to other specified factors, initial encounter

== ENCOUNTER → 2017-06-18 | Outpatient (CLI) | payer OTHER ==
[~2017-06-18] MED LIST: ALLO100T PO; ASPI81TA28 PO; ATOR-22 PO; FERR1TAB23 PO; GLIP-199 PO; HYZ/10015 PO; LEVO50TA6 PO; METF-384 PO; OMEG10007 PO; OXYC-57 PO
--- NOTE | 2017-06-18 13:23 | DIAGNOSTIC IMAGING REPORT ---
PET/CT SKULL-THIGH CLINICAL HISTORY: 66 years-old Male presenting with SOLITARY PULMONARY NODULE, former smoker, pleural-based spiculated mass in the left midlung and poorly defined nodule in the superior segment left lower lobe. TECHNIQUE: PET/CT was performed from the base of the skull through the proximal thighs following the intravenous administration of 13.2 mCi of F18-FDG. Blood glucose level 177 mg/dL. The injection was performed at 10:01 AM and imaging began at 10:[address] was performed for attenuation correction purposes and anatomic localization. COMPARISON: Chest CT from 06/03/2017. CT DOSE (mGy.cm): The estimated cumulative dose is 1156.30. FINDINGS: Head and neck: Enlarged and FDG avid right cervical lymph nodes in both the anterior and posterior chains. Chest: Pathologically enlarged left axillary, mediastinal, and bilateral hilar lymph nodes, which are FDG avid (max SUVs ranging from 4.8 in the right supraclavicular fossa to 9.4 in the jeniffer). Atherosclerosis of the aorta. Mild multichamber enlargement of the heart. Aortic valve and coronary artery calcification. No pericardial or pleural effusion. Emphysema. Extensive subpleural reticulation at the bilateral lung bases. Dominant 3.7 cm mass in the left upper lobe abuts the pleura and major fissure, demonstrates cavitation, and is intensely FDG avid (max SUV 9.9). FDG avid peribronchovascular consolidation to the posterior segment of the left upper lobe (max SUV 4.2). FDG avid subpleural nodule in the superior segment of the left lower lobe, which measures 1.7 cm (max SUV 4.9). Triangular subpleural nodule in the right upper lobe measuring 7 mm (series 2 image 83) (max SUV 1.2), likely atelectasis or scarring. Airways patent. Abdomen and pelvis: Physiologic distribution of radiotracer in the abdomen and pelvis. Normal excretion from the kidneys with radiotracer in the urinary collecting system. Post surgical changes of cholecystectomy. Mild prominence of the biliary ducts likely a reservoir effect in the post cholecystectomy state. Possible nonobstructing calculus in the interpolar region the right kidney. Asymmetric bladder wall thickening along the dome and left lateral aspect. Prostate not significantly enlarged. Remaining hollow and solid viscera normal. Atherosclerosis of the normal caliber abdominal aorta. No gross lymphadenopathy. Musculoskeletal: Posterior lumbar fusion hardware. Multifocal sites of FDG avidity in the bones, which are minimally apparent on anatomic imaging as heterogeneous radiolucency: -Right lateral mass of C1 (max of 2 be 7.2) -Sternum and manubrium (max SUV 6.1) -T1 vertebral body also noted (max SUV 4.9) -Significant compression deformity of L3 (max SUV 9.4) IMPRESSION: 1. FDG avid left upper lobe mass most consistent with a primary bronchogenic carcinoma. The presence of multifocal areas of FDG avidity in the left lung may suggest regional spread of disease. 2. Extensive bilateral hilar, mediastinal, supraclavicular, and left axillary FDG avid lymphadenopathy. 3. Multifocal FDG avid osseous lesions consistent with metastatic disease, involving C1, T1 and the sternum. A compression deformity of L3 is also suspected to be a pathologic fracture. 4. Emphysema. 5. Asymmetric bladder wall thickening along the dome and left lateral aspect. Although this could be due to chronic outlet obstruction or cystitis, this does could raise concern for bladder neoplasm. Consider direct visualization. Electronically signed by: Nando Pruitt M.D. 06/18/2017 1:21 PM Dictated Date/Time: 06/18/2017 1:02 PM
== END | disposition home or self-care (01) ==
LOC: C.PET 09:40
PROVIDERS: ATTEND Physician Assistant
DX: R91.1 Solitary pulmonary nodule (principal)

== ENCOUNTER → 2017-06-24 | Day surgery (SDC) | payer OTHER ==
[2017-06-17 10:26] VITALS: Ht 172.7 cm; Wt 81.8 kg
[~2017-06-24] VITALS: Ht 172.7 cm; Wt 81.8 kg
[~2017-06-24] MED LIST changes: +ALBUTEROL HFA INHALER 8.5 GM INH ONE; +ATROPINE SULFATE 0.1 MG/ML 5ML SYR IV PRN; +DEXAMETHASONE SOD INJ 4 MG/ML VIAL ONE; +EpHEDrine SULFATE INJ 50 MG/ML AMP IV PRN; +FENTANYL CITRATE INJ 50 MCG/1 ML 2 ML VIAL IV PRN; +FENTANYL CITRATE INJ 50 MCG/1 ML 2 ML VIAL ONE; +HYDROmorphone INJ 1 MG/ML SYR IV PRN; +LABETALOL HCL IV 5 MG/ML 20ML IV PRN; +LACTATED RINGER'S 1000ML 1,000 ML IV SCH; +LIDOCAINE HCL 2% 2 ML VIAL (20MG/ML) ONE; +MEPERIDINE HCL 25 MG/ML CARP IV PRN; +MIDAZOLAM HCL 1 MG/ML 2ML VIAL ONE; +ONDANSETRON INJ 2 MG/ML 2 ML VIAL IV PRN; +ONDANSETRON INJ 2 MG/ML 2 ML VIAL ONE; +OXYCODONE/ACETAMINOPHEN 5-325 TAB ONE; +OXYCODONE/ACETAMINOPHEN 5-325 TAB PO PRN; +PHENYLEPHRINE HCL INJ 10 MG/ML VIAL ONE; +PROPOFOL IV EMULSION 10 MG/ML 20 ML VIAL IV ONE; +antibiotic
--- NOTE | 2017-06-24 07:04 | History and Physical ---
History & Physical Date of Service Jun 24, 2017. History & Physical CC: JOANNA nodule, EBUS w/ENB HPI: Patient is a 66 yo male with history of DM2, HTN, Hyperlipidemia, rheumatic fever, CAD, and tobacco use on and off (1ppd when smoking) for approximately 40 years who recently was admitted to [facility] for complaint of lower back pain. 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 The patient was found to have L3 burst fracture and cauda equina compression. During admission, the patient had lumbar laminectomy of L2/ L3, pedicle screw instrumentation and fusion L1 through L5,a nd ORIF L3 burst fx. Also during admission, the patient had a chest CT completed which showed a spiculated mass in the left midlung which is pleural based and approximately 3.5x2.6 cm along with a LLL 1.6 cm nodule and reticulonodular pattern of the JOANNA. Possible hilar adenopathy is also noted due to hilar thickening, but this is uncertain due to lack of IV contrast on exam. Images were viewed today. The patient does have an on and of chronic cough. He denies SOB, Chest pain, left sided back pain, palpitations, CANCHOLA. The patient has been a long time smoker as listed above, but has not been smoking for about 2 years now. His father of lung CA at the age of 70. Upon discharge from the hospital, this patient was scheduled for a PET/CT scan. The images from his PET-CT scan were reviewed today. It was noted on his scan that he did have an FDG avid left upper lobe mass most consistent with primary bronchogenic carcinoma, multifocal areas of FDG avidity in the left lung , extensive bilateral hilar, mediastinal, supraclavicular, and left axillary FDG avid lymphadenopathy, multi focal FDG avid osseous lesions consistent with possible metastatic disease involving C1, T1, and the sternum. A compression deformity of L3 was also noted. Asymmetric bladder wall thickening was also noted on the scan, which could be due to chronic outlet obstruction, cystitis, or could raise concern for bladder neoplasm. The patient presents to the hospital today for EBUS w/ENB. Review of Systems: Constitutional: denies: chills, fever Eyes: denies: visual changes ENT: denies: loss of hearing Cardiovascular: denies: chest pain, chest pressure, chest tightness Respiratory: reports: cough (chronic on and off. Mild), denies: shortness of breath, wheezing, CANCHOLA Gastrointestinal: denies: abdominal pain, diarrhea Genitourinary - Male: denies: dysuria Neurologic: denies: headache, general weakness All other systems reviewed and negative. Past medical history/surgical history: As noted in HPI Family history: Father of lung CA Social history: Former smoker, quit approximately 2 years ago. . Allergies: No known allergies Home medications: Zyloprim 150 mg daily Aspirin 81 mg daily Atorvastatin 20 mg daily Ferrous sulfate 325 mg daily Fish oil 1400 mg daily Glipizide 10 mg daily Highs are 1 tablet daily Levothyroxine 50 mcg daily Metformin 1 g daily Oxycodone/acetaminophen 1 tablet p.r.n. pain q.4 hours Labs: 06/07/2017: WBC 16.03 RBC 3.23 Hemoglobin/hematocrit 9.4/28.1 Imaging: As noted in HPI Physical Exam: General Appearance: WELL-APPEARING, WD/WN, NO APPARENT DISTRESS Head: NORMOCEPHALIC, ATRAUMATIC Eyes: PERRLA, SCLERAE NORMAL ENT: other (hearing intact) Neck: TRACHEA MIDLINE, NO STRIDOR Respiratory: BREATH SOUNDS NORMAL, CLEAR TO AUSCULTATION, CLEAR TO PERCUSSION, NO RESPIRATORY DISTRESS, NO TENDERNESS Cardiovascular: REGULAR RATE/RHYTHM Abdomen: NON TENDER, NORMAL BOWEL SOUNDS Back: NORMAL INSPECTION Lower Extremities: NO EDEMA, NO DEFORMITY Neuro: ALERT, ORIENTED x 3 Psychiatric: NORMAL AFFECT Plan: Patient with new, suspicious left upper lobe spiculated nodule who presents today for EBUS w/ENB. Patient was seen and evaluated and plan is agreed upon we'll move forward with procedure.
[2017-06-24 07:59] VITALS: BP 160/72; PULSE 74; TEMP 36.9; O2SAT 97
--- NOTE | 2017-06-24 11:55 | Bronchoscopy Procedure Note ---
Bronchoscopy Procedure Note Procedure: Flexible-Bronchoscopy, EBUS, Tbbx, GETA Consent: Obtained through the patient placed into the chart Pre-Procedural Dx: Lung mass with mediastinal lymphadenopathy Post-Procedural Dx: Lung carcinoma N3 disease Analgesia: GETA Sedation: GETA Procedure: The Olympus video bronchoscope and EBUS scope were used for this procedure Initially the flexible bronchoscope was used for evaluation of the airways. The ET tube was notably cm above the level of the antoinette. Trachea: Visualized portion of the trachea was anatomically within normal limits Antoinette: Anatomically within normal limits Right bronchial tree: Right mainstem bronchus: Anatomically within normal limits Right upper lobe: Anatomically within normal limits Bronchus intermedius: Anatomically within normal limits Right middle lobe: Anatomically within normal limits Right lower lobe: Anatomically within normal limits Findings: No significant findings noted Left bronchial tree: Left mainstem bronchus: Anatomically within normal limits Left upper lobe: Erythematous, diffuse mucous secretions and externally compressed Lingula: Erythematous with diffuse mucous secretions Left lower lobe: Anatomically within normal limits Findings: No significant findings noted EBUS/KONSTANTIN: Karie Stations Evaluated: 7: # of passes 1 4R: # of passes 4 BAL: JOANNA EBL: none Complications: None Follow-up: [facility]
[2017-06-24 12:45] VITALS: BP 134/65; PULSE 74; TEMP 37.4; O2SAT 92
--- NOTE | 2017-06-24 12:46 | Anesthesiology Progress Note ---
Anesthesia Post Op Note Date & Time Jun 24, 2017 at 12:46 Vital Signs Pain Intensity: 0 Vital Signs Past 12 Hours Date Time Temp Pulse Resp B/P (MAP) Pulse Ox O2 Delivery O2 Flow Rate FiO2 06/24/17 12:35 36.2 77 18 132/72 92 Room Air 06/24/17 12:25 79 18 127/71 92 Room Air 06/24/17 12:15 79 18 134/71 94 Room Air 06/24/17 12:05 88 18 141/75 100 Oxymask 10 06/24/17 11:56 36.6 92 18 138/77 100 Oxymask 10 06/24/17 07:59 36.9 74 20 160/72 (101) 97 Room Air Notes Mental Status: alert / awake / arousable, participated in evaluation Pt Amnestic to Procedure: Yes Nausea / Vomiting: adequately controlled Pain: adequately controlled Airway Patency, RR, SpO2: stable & adequate BP & HR: stable & adequate Hydration State: stable & adequate Anesthetic Complications: no major complications apparent
[2017-06-24 13:11] VITALS: BP 151/72; PULSE 76; O2SAT 93
--- NOTE | 2017-06-24 13:36 | Discharge Instructions ---
Discharge Instructions Date of Service Jun 24, 2017. Admission Reason for Admission: FDG avid Pulmonary Nodule Discharge Discharge Diagnosis / Problem: Probable Lung cancer Discharge Goals Goal(s): Diagnostic testing Activity Recommendations Activity Limitations: resume your previous activity . Instructions / Follow-Up Instructions / Follow-Up Follow up in [facility] Current Hospital Diet Patient's current hospital diet: Discharge Diet Recommended Diet: Regular Diet Procedures Procedures Performed: Endobronchial Ultrasound Guided Biopsy; Needle Aspiration; Bronchial Lavage of Left Upper Lobe Pending Studies Studies pending at discharge: no Laboratory Results Hemoglobin A1c Test 06/02/17 00:57 Range/Units Estimated Average Glucose 128 mg/dl Hemoglobin A1c 6.1 H 4.5-5.6 % Medical Emergencies . Who to Call and When: Medical Emergencies: If at any time you feel your situation is an emergency, please call 911 immediately. . Non-Emergent Contact Non-Emergency issues call your: [employer] . . "Provider Documentation" section prepared by Faby Solorzano. . VTE Core Measure Inpt VTE Proph given/why not?: Treatment not indicated
[2017-06-24 13:37] VITALS: BP 154/71; PULSE 75; TEMP 37.1; O2SAT 92
== END | disposition home or self-care (01) ==
LOC: C.ACU 07:07
PROVIDERS: ATTEND Internal Medicine Critical Care Medicine
DX: R91.8 Other nonspecific abnormal finding of lung field (principal); R91.1 Solitary pulmonary nodule; R59.0 Localized enlarged lymph nodes; R06.02 Shortness of breath; I25.2 Old myocardial infarction; I10 Essential (primary) hypertension; E11.9 Type 2 diabetes mellitus without complications; I25.10 Atherosclerotic heart disease of native coronary artery without angina pectoris; Z98.890 Other specified postprocedural states; Z87.891 Personal history of nicotine dependence; Z79.899 Other long term (current) drug therapy; Z79.82 Long term (current) use of aspirin; Z68.27 Body mass index [BMI] 27.0-27.9, adult; Z80.1 Family history of malignant neoplasm of trachea, bronchus and lung

== ENCOUNTER → 2017-07-25 | Outpatient (CLI) | payer OTHER ==
[~2017-07-25] MED LIST changes: -ALBUTEROL HFA INHALER 8.5 GM INH ONE; -ATROPINE SULFATE 0.1 MG/ML 5ML SYR IV PRN; -DEXAMETHASONE SOD INJ 4 MG/ML VIAL ONE; -EpHEDrine SULFATE INJ 50 MG/ML AMP IV PRN; -FENTANYL CITRATE INJ 50 MCG/1 ML 2 ML VIAL IV PRN; -FENTANYL CITRATE INJ 50 MCG/1 ML 2 ML VIAL ONE; -HYDROmorphone INJ 1 MG/ML SYR IV PRN; -LABETALOL HCL IV 5 MG/ML 20ML IV PRN; -LACTATED RINGER'S 1000ML 1,000 ML IV SCH; -LIDOCAINE HCL 2% 2 ML VIAL (20MG/ML) ONE; -MEPERIDINE HCL 25 MG/ML CARP IV PRN; -MIDAZOLAM HCL 1 MG/ML 2ML VIAL ONE; -ONDANSETRON INJ 2 MG/ML 2 ML VIAL IV PRN; -ONDANSETRON INJ 2 MG/ML 2 ML VIAL ONE; -OXYCODONE/ACETAMINOPHEN 5-325 TAB ONE; -OXYCODONE/ACETAMINOPHEN 5-325 TAB PO PRN; -PHENYLEPHRINE HCL INJ 10 MG/ML VIAL ONE; -PROPOFOL IV EMULSION 10 MG/ML 20 ML VIAL IV ONE
== END | disposition home or self-care (01) ==
LOC: C.LABSPEC 12:08
PROVIDERS: ATTEND Internal Medicine Hematology
DX: C34.92 Malignant neoplasm of unspecified part of left bronchus or lung (principal); C79.51 Secondary malignant neoplasm of bone